=== PATIENT | female | born 1965 | race Hispanic/Latino ===

== ENCOUNTER 2025-03-19 16:49 | Inpatient (IN) | payer SELFPAY ==
[~2025-03-19] VITALS: Ht 157.5 cm; Wt 64.1 kg
[2025-03-19] MEDS ORDERED: LISI10TA24 PO (17:24)
[2025-03-19] MEDS ORDERED: METF-910 PO (17:24)
[2025-03-19] MEDS ORDERED: ATOR10 PO (17:24)
[2025-03-19 17:41] LABS: APPEARANCE,URINE CLEAR (CLEAR); GLUCOSE, URINE (UA) NEGATIVE (NEGATIVE); LEUKOCYTE ESTERASE ,URINE NEGATIVE Leu/uL (NEGATIVE); NITRATE,URINE NEGATIVE (NEGATIVE); OCCULT BLOOD,URINE NEGATIVE (NEGATIVE)
[2025-03-19 17:43] LABS: ADD UA MICROSCOPIC NO
--- NOTE | 2025-03-19 17:44 | EKG ---
[facility] Test Date: 2025-03-19 Test Time: 17:39:56 Pat Name: GRACE FIGUEROA Department: ED Room: 311 Gender: F [employer] Inspector: [id number] : 1965 Requested By: BROOKE CASTRO Order Number: [id number] Reading MD: Austyn Donnelly Measurements Intervals [place] Rate: 114 P: 47 [place]: 190 QRS: 24 QRSD: 85 T: -5 QT: 333 QTc: 460 Interpretive Statements Sinus tachycardia Low voltage, precordial leads No previous ECG available for comparison Electronically Signed On 03-20-2025 19:49:52 CDT by Austyn Donnelly Please click the below link to view image of tracing.
[2025-03-19] MEDS: [UNRECOGNIZED DRUG - OTHER] IV ONE (17:49)
[2025-03-19 17:50] LABS: SARS-CoV-2, RNA, NAAT NEGATIVE SARS CoV-2 (NEGATIVE)
[2025-03-19 17:53] LABS: IMMATURE GRANULOCYTE ABSOLUTE 0.07 K/uL (0-1); NUCLEATED RED BLOOD CELLS 0.0 % (0.0-0.19); PLATELET COUNT (AUTO) 268 K/uL (130-400); RED BLOOD CELL COUNT(AUTO) 4.43 MIL/uL (4.00-5.50); RED CELL DISTRIBUTION WIDTH 13.0 % (11.0-15.5); WHITE BLOOD COUNT (AUTO) 14.3 K/uL (4.8-10.8)
[2025-03-19 17:53] LABS: INFLUENZA TYPE A Negative For Type A (NEGATIVE); INFLUENZA TYPE B Negative For Type B (NEGATIVE)
[2025-03-19 18:13] LABS: CREATININE 0.7 mg/dL (0.5-1.0); GLOMERULAR FILTR. RATE CALC 100.0 mL/min (>90); GLUCOSE,RANDOM 169.0 mg/dL (70-105); SODIUM SERUM 140.0 mmol/L (136-145); UREA NITROGEN, BLOOD 13.0 mg/dL (7-18)
[2025-03-19 18:25] LABS: CREATINE KINASE, TOTAL 57.0 U/L (21-232)
--- NOTE | 2025-03-19 18:38 | HMCIMG ---
EXAM: CR Chest, 1 View. CLINICAL HISTORY: sob COMPARISON: None provided. FINDINGS: LUNGS: There is no mass, infiltrate, or acute pulmonary abnormality. PLEURAL SPACES: No evidence of pleural effusion or pneumothorax. MEDIASTINUM: Cardiac size and mediastinal contours within normal limits. BONES: No acute osseous abnormality. IMPRESSION: No acute cardiopulmonary pathology is evident. /[place]
[2025-03-19] MEDS: ZOSYN 3.375GM +NS 50ML IV ONE (18:51)
[2025-03-19] MEDS ORDERED: IOHEXOL 350 MG/ML 100ML INFUS..BTL IV ONE (18:56)
[2025-03-19] MEDS: MAGNESIUM OXIDE 400 MG TABLET ONE (18:57)
[2025-03-19] MEDS: MAGNESIUM OXIDE 400 MG TABLET PO STA (18:59)
--- NOTE | 2025-03-19 19:00 | NUR ---
PT IS REFUSING CT SCAN. ALETHEA CASTRO WAS ADVISED, HE SPOKE TO PT AT LENGTH BUT PT CONTINUES TO REFUSE.
--- NOTE | 2025-03-19 19:27 | ERN ---
General Chief Complaint: Fever Stated Complaint: FEVER Time Seen by MD: 17:13 Time Seen by Midlevel: 17:13 Source: patient History of Present Illness Initial Comments Patient is a 51-year-old female with a past medical history of type 2 diabetes and hypertension presenting to the emergency department via EMS for evaluation of fever, diarrhea, chills, nausea, vomiting, generalized body weakness that started earlier today. Allergies: Coded Allergies: No Known Allergies (Unverified Allergy, Unknown, 03/19/25) Home Meds Reported Medications Metformin HCl (Metformin HCl ER) 500 Mg Tab.er.24h, 1 TAB PO BID for 30 Days, #60 TAB 0 Refills 03/19/25 Lisinopril (Lisinopril) 10 Mg Tablet, 1 TAB PO DAILY for 30 Days, #30 TAB 0 Refills 03/19/25 Atorvastatin Calcium (LIPITOR) 20 Mg Tab, 1 TAB PO HS for 30 Days, #30 TAB 0 Refills 03/19/25 Past Medical History Past Medical History: Diabetes-Type II, Hypertension Past Surgical History: Other ROS Dictation CONSTITUTIONAL: Negative except for HPI HEAD/FACE: Negative except for HPI EENT: Negative except for HPI RESPIRATORY: Negative except for HPI GASTROINTESTINAL/ABDOMINAL: Negative except for HPI GENITOURINARY: Negative except for HPI MUSCULOSKELETAL: Negative except for HPI INTEGUMENTARY: Negative except for HPI NEUROLOGICAL/PSYCH: Negative except for HPI HEMATOLOGIC/LYMPHATIC: Negative except for HPI All Systems Negative, Except as noted above. 13 point review of systems assessed and all negative except for above. Physical Exam Physical Exam Dictation Vital Signs reviewed General Appearance: Alert, oriented x 3, no acute distress, well developed, nourished. Head and Face: non-traumatic. Eyes: PERRL, pink conjunctivas, eyelid no trauma, anterior chamber with arcus senilis. Ears: Pinnas intact and no signs of trauma or erythema ear canals clear and no discharge TM no erythema Nose: No discharge, no bleeding. Oropharynx: Mouth normal, tongue pink, pharynx clear,no erythema, tonsils no exudates, no abscesses noted, mucous membrane moist Neck: Supple, non-tender, no thyromegaly, no masses, no JVD, no bruits Breast:Deferred Chest:No tenderness, no crepitus, no paradoxical movement, no retractions Lungs:Clear, well-ventilated, symmetric, no rales, no wheezing, no rhonchi, no stridor, good breath sounds bilaterally Heart: Regular rate, regular rhythm, no murmur, no gallops Vascular: no peripheral edema, Abdomen: Soft, positive bowel sounds, nondistended, no guarding, nontender, no rebound, no masses no hepatomegaly, no splenomegaly, no Bullard's sign, no hernias. Rectal: Deferred Genital: Deferred Neurological: Normal speech, motor function intact, sensory function intact Musculoskeletal: Neck nontender, full range of motion, back nontender, full range of motion, Extremities: nontender, full range of motion Skin: Color pink, dry, no turgor, no rash, no lacerations, no abrasions, no contusions. Lymphatic: Deferred Results Laboratory and Microbiology Lab and Micro Result Labs Reviewed?: Yes MDM MDM: Differential diagnosis: Sepsis, gastroenteritis, dehydration, electrolyte abnormality Rationale: Tests considered and ordered secondary to shared decision making include: Previous outside records reviewed: Old ER visits. Risk of complication and/or morbidity or mortality of patient management: None Medications-Per medication reconciliation Need for hospitalization: Patient does meet criteria for hospitalization. Need for emergency major/minor surgery: No There are no social concerns with this patient. Prescription drug management Prescriptions will include symptomatic care Patient's prior external medical records from other ER visits were reviewed by me as indicated. Prior testing and results from previous visits were reviewed. Prior tests were taken into account with medical decision making and resource utilization, independent historian/historians were used to obtain complete medical history. I independently interpreted the test that were performed, results were reviewed by me and considered findings on radiology if ordered. Medical management and examination interpretation discussions were had by me with other qualified healthcare professionals as indicated for the patient's care. ED Course DX & DISP Disposition: Inpatient Departure Impression: Primary Impression: Sepsis Additional Impressions: Gastroenteritis, Leukocytosis Condition: Stable Referrals: SELF,REFERRAL (PCP) I have reviewed the case, and I agree with, Diagnosis and Plan I performed the substantive portion of the visit. I have reviewed and personally made and approve the management plan that is documented in the note by myself or the ANNABELLE. I acknowledge for responsibility for the patient's management plan. BROOKE CASTRO Mar 19, 2025 19:27
--- NOTE | 2025-03-19 20:49 | HP ---
[facility] HISTORY AND PHYSICAL Date of Service: Mar 19, 2025 Time of Service: 20:49 Attending/ Supervising physicians: Dr. Pablo and Dr. Teofilo Hollis HISTORY OF PRESENT ILLNESS: Mrs. Boudreaux is a 59-year-old female with a past medical history of hypercholesteremia, type 2 diabetes and hypertension who presented to [facility] via EMS for evaluation of fever, diarrhea, chills, nausea, vomiting, generalized body weakness that started earlier today. The patient reported that the abdominal pain was in her lower abdomen is constant and feels like colicky/bad cramping. Initially the patient refused CT of abdomen and pelvis that ED provider requested. The patient presented to the ED with with a BP of 124/81, heart rate 124 bpm, respirations 20 bpm, 100.29 F, 98% on room air. Labs: WBCs of 14.3, lactic acids 2.5, magnesium 1.4. Negative: Influenza, COVID, rapid strep swabs, UA, and chest x-ray. ED provider administered NS a 1878 mL, Tylenol 1 g, Zosyn 3.375, magnesium oxide 400 mg. ED provider request patient be admitted to the hospital with a diagnosis of sepsis, gastroenteritis, leukocytosis. I assessed the patient in ED 19. Significant other was at bedside I informed them of vital signs and labs. The patient was then in agreement with the CT. CT abdomen and pelvis with contrast results: Acute diverticulitis around the distal descending and proximal sigmoid colon without perforation or abscess. Fatty liver. I answered their multiple questions. They verbalized understanding and are in agreement with the remaining of the plan. Plan and assessment are listed below. REVIEW OF SYSTEMS 12-point ROS reviewed with the patient. All pertinent positives mentioned a aram. 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 FAMILY HISTORY: Noncontributory Coded Allergies: No Known Allergies (Unverified Allergy, Unknown, 03/19/25) PHYSICAL EXAM GENERAL APPEARANCE: The patient is awake, alert, and oriented, in no acute card iopulmonary distress. NEUROLOGICAL: Cranial nerves II-XII grossly intact. Motor is 5/5 in bilateral upper and lower extremities proximal to distal. No sensory deficits. HEENT: Face is symmetric. Pupils are equal and reactive. Extraocular movements are intact. NECK: Supple. No JVD. No thyromegaly. No submental, submandibular, pre- /postauricular, occipital or supraclavicular lymphadenopathy. CHEST: Normal chest expansion. No Telemetry. LUNGS: Absence of any rales, rhonchi or any wheezing. CARDIOVASCULAR: Regular. S1 and S2 normal. No appreciable rubs, murmurs or gallops. ABDOMEN: Soft, lower abdominal tenderness, and nondistended. There is no rebound, voluntary guarding, or rigidity. : Deferred. No Queen. EXTREMITIES: Non-edematous and not cyanotic. No clubbing. Good capillary refill. SKIN: No skin breakdown. Vital Sign (Last 24 Hours) 03/19/25 19:23 Temp 100.8 Pulse 106 Resp 20 B/P (MAP) 107/59 Pulse Ox 97 O2 Delivery Room Air* O2 Flow Rate 0 FiO2 21 LABS: Laboratory: Test 03/19/25 17:33 03/19/25 17:25 Range/Units White Blood Count 14.3 H 4.8-10.8 K/uL Red Blood Count 4.43 4.00-5.50 MIL/uL Hemoglobin 13.3 12.0-16.0 g/dL Hematocrit 38.9 36-48 % Mean Corpuscular Volume 87.8 79-99 fL Mean Corpuscular Hemoglobin 30.0 27.0-33.0 pg Mean Corpuscular Hemoglobin Concent 34.2 32.0-36.0 g/dL Red Cell Distribution Width 13.0 11.0-15.5 % Platelet Count 268 130-400 K/uL Mean Platelet Volume 9.4 7.5-10.5 fL Immature Granulocyte % (Auto) 0.5 0-1 % Neutrophils (%) (Auto) 95.1 H 40.0-77.0 % Lymphocytes (%) (Auto) 2.9 L 21.0-51.0 % Monocytes (%) (Auto) 1.2 L 3.0-13.0 % Eosinophils (%) (Auto) 0.1 0.0-8.0 % Basophils (%) (Auto) 0.2 0.0-5.0 % Neutrophils # (Auto) 13.6 H 1.8-7.7 K/uL Lymphocytes # (Auto) 0.4 L 1.0-4.8 K/uL Monocytes # (Auto) 0.2 0.1-1.0 K/uL Eosinophils # (Auto) 0.01 0.00-0.70 K/uL Basophils # (Auto) 0.03 0.00-0.20 K/uL Absolute Immature Granulocyte (auto 0.07 0-1 K/uL Nucleated Red Blood Cells 0.0 0.0-0.19 % White Cell Morphology Comment See comments Urine Color COLORLESS YELLOW Urine Appearance CLEAR CLEAR Urine pH 5.0 5.0-8.0 Urine Specific [place] 1.007 1.001-1.031 Urine Protein NEGATIVE NEGATIVE mg/dL Urine Glucose (UA) NEGATIVE NEGATIVE mg/dL Urine Ketones NEGATIVE NEGATIVE mg/dL Urine Occult Blood NEGATIVE NEGATIVE Urine Nitrate NEGATIVE NEGATIVE Urine Bilirubin NEGATIVE NEGATIVE mg/dL Urine Urobilinogen 0.2 0.2-1.0 mg/dL Urine Leukocyte Esterase NEGATIVE NEGATIVE Sim/uL Sodium Level 140 136-145 mmol/L Potassium Level 3.7 3.5-5.1 mmol/L Chloride Level 105 101-111 mmol/L Carbon Dioxide Level 26 21-32 mmol/L Blood Urea Nitrogen 13 7-18 mg/dL Creatinine 0.7 0.5-1.0 mg/dL Glomerular Filtration Rate Calc 100 >90 mL/min Random Glucose 169 H 70-105 mg/dL Lactic Acid Level 2.5 0.8-2.5 mmol/L Total Calcium 8.3 L 8.5-10.1 mg/dL Magnesium Level 1.40 L 1.80-2.40 mg/dL Total Creatine Kinase 57 21-232 U/L Troponin I High Sensitivity < 4 L 4-50 ng/L B-Type Natriuretic Peptide 26 0-100 pg/mL Influenza Type A Antigen Negative For Type A NEGATIVE Influenza Type B Antigen Negative For Type B NEGATIVE SARS-CoV-2, RNA, NAAT NEGATIVE SARS CoV-2 NEGATIVE Current Medications Medications (Trade) Dose Ordered Sig/Sancho Route PRN Reason Start Time Stop Time Status Last Admin Dose Admin Magnesium Oxide (Mag-Ox) 400 mg ONCE STAT PO 03/19/25 18:51 03/19/25 18:58 DC DIAGNOSTICS / RADIOLOGY: [ ] ASSESSMENT: Acute diverticulitis around the distal descending and proximal sigmoid colon, POA, per CT on 03/19/2025 Sepsis, POA, 2/2 above Intractable abdominal pain with acute N/V/D, POA Acute febrile illness, POA Fatty liver, POA Leukocytosis/lactic acidosis, POA GBW, POA Diabetes mellitus with hyperglycemia, POA Electrolyte derangement (hypomagnesemia, hypocalcemia), POA Hypertension Hypercholesteremia PLAN: -Admit to medical floor with continuous telemetry monitoring. -Continue Zosyn 3.375 Q.8 hours. -LR x1 L bolus then LR at 125 mL/hour. -NPO for now. -Reconciled/started home medications: Atorvastatin and lisinopril. -Hold home medication metformin and start insulin sliding scale per protocol -Monitor electrolytes and treat accordingly. -Monitor renal and liver function. -PRN medications for pain management, fever, N/V, constipation, hypertension. -Oxygen supplement as needed to maintain oxygen levels equal to or greater than 92% -I&O. -Blood pressure checks every 4 hours and as needed. -AM labs. -GI and DVT prophylaxis -Further plan/orders per hospitalization course. 1. Which of the following were discussed? Hospice Care - No Therapeutic options - Yes Advance Directives - Yes Other discussions - 2. Discussed with who? The patient 3. Voluntary nature of this service was explained to the patient? Yes 4. Amount of time spent - _ Over 35 minute 5. Reviewed by Physician? (if this service was performed by ANNABELLE) Yes ATTESTATION BY PHYSICIAN I have seen and examined the patient. I reviewed the documentation, medical decision making, and treatment plan as noted by the ANNABELLE above. I agree with the findings and plan of care. LU CHAUDHRY WEAVER DOBBY LOOM Mar 19, 2025 20:49
[2025-03-19] MEDS: LACTATED RINGERS 1000ML IV ONE (21:22)
[2025-03-19] MEDS ORDERED: HYDROcodone/APAP 5/325 1 TAB TABLET PO PRN (22:00)
[2025-03-19] MEDS ORDERED: GLUCAGON 1MG KIT 1 MG ML IM PRN (22:30)
[2025-03-19] MEDS ORDERED: IOHEXOL-350 75 ML VIAL IV ONE (22:30)
[2025-03-19] MEDS ORDERED: MAGNESIUM 2GM PREMIX 50ML 50 ML IV ONE (22:30)
[2025-03-19] MEDS ORDERED: DEXTROSE 50%-WATER 50 ML DISP.SYRIN IV PRN (22:30)
[2025-03-19] MEDS ORDERED: PoTASSium chl 10% ELIXIR 20MEQ 20 MEQ/15 ML UDCUP PO PRN (22:30)
[2025-03-19] MEDS: LACTATED RINGERS 1000ML 1,000 ML IV SCH (23:03)
[2025-03-19] MEDS: PoTASSium chloRIDE 20MEQ ER 20 MEQ ERTAB PO PRN (23:49)
[2025-03-19] MEDS: MAGNESIUM 2GM PREMIX 50ML 50 ML IV PRN (23:49)
[2025-03-20] VITALS (9 sets, daily range): BP systolic 95–125; BP diastolic 56–72; PULSE 77–88; RESP 18–20; TEMP 98.2–103.6; O2SAT 97
--- NOTE | 2025-03-20 00:26 | HMCIMG ---
EXAM: CT Abdomen and Pelvis with IV contrast. CLINICAL HISTORY: Severe lower abdominal pain. TECHNIQUE: Thin collimated axial CT images of the abdomen and pelvis were obtained, with sagittal and coronal reformatted images also submitted. A CT scan is done according to ALARA (As Low As Reasonably Achievable). CONTRAST: 75 cc Omnipaque 350. COMPARISON: None. FINDINGS: Unremarkable visualised lung parenchyma. There is no focal abnormality appreciated within the liver, gallbladder, pancreas, spleen, adrenals, or kidneys. Fatty liver. Bowel loops are normal in calibre without evidence of obstruction or ileus. Sigmoid and descending colonic diverticulosis with adjacent fatty stranding. The appendix is unremarkable. There is no abnormality within the urinary bladder. Unremarkable reproductive organs. No lymphadenopathy. No free fluid. No pneumoperitoneum. No gross abnormality in the abdominal vessels. There is no acute osseous abnormality. IMPRESSIONS: Acute diverticulitis around the distal descending and proximal sigmoid colon without perforation or abscess. Fatty liver. /Julieth
--- NOTE | 2025-03-20 00:50 | NUR ---
REPORT GIVEN TO NURSE CATHERINE
[2025-03-20] MEDS: ZOSYN 3.375GM +NS 50ML IVPB SCH (02:38)
[2025-03-20] MEDS ORDERED: 0.9%NACL 50ML IV SCH (03:00)
[2025-03-20 06:24] LABS: NUCLEATED RED BLOOD CELLS 0.0 % (0.0-0.19); PLATELET COUNT (AUTO) 234.0 K/uL (130-400); RED BLOOD CELL COUNT(AUTO) 3.98 MIL/uL (4.00-5.50); RED CELL DISTRIBUTION WIDTH 13.0 % (11.0-15.5); WHITE BLOOD COUNT (AUTO) 13.5 K/uL (4.8-10.8)
[2025-03-20 06:55] LABS: CREATININE 0.7 mg/dL (0.5-1.0); GLOMERULAR FILTR. RATE CALC 100.0 mL/min (>90); GLUCOSE,RANDOM 170.0 mg/dL (70-105); PHOSPHORUS 1.7 mg/dL (2.5-4.9); SODIUM SERUM 137.0 mmol/L (136-145); UREA NITROGEN, BLOOD 5.0 mg/dL (7-18)
[2025-03-20] MEDS: LISINOPRIL 10 MG TABLET PO SCH (09:00)
--- NOTE | 2025-03-20 09:20 | NUR ---
bp med held lisinopril held per pt request d/t low blood pressure this morning at 7am showing 95/56 hr 77. will continue monitoring.
[2025-03-20] MEDS: FAMOTIDINE 20MG VIAL IV SCH (09:39)
--- NOTE | 2025-03-20 10:44 | NUR ---
positive blood cx notified by operations label clerk Valencia of positive blood cultures gram - rods /. dr romo aware and stated to continue iv zosyn and to consult ID. Dr Garcia notified at 1145, pending confirmation. will followup.
--- NOTE | 2025-03-20 12:36 | NUR ---
general surgery consult dr coles notified of new consult for diverticulitis per dr romo, pending confirmation will followup.
--- NOTE | 2025-03-20 12:50 | NUR ---
fever dr romo made aware of pt temp 103.6 oral. icepacks applied, tylenol given, and id consulted per dr romo orders. temp also retaken at 1400, recheck temp shows 98.6 oral. will continue monitoring.
--- NOTE | 2025-03-20 13:59 | PN ---
[facility] PROGRESS NOTE Date of Service: Mar 20, 2025 Time of Service: 13:57 SUBJECTIVE: 03/20 the patient has been seen and examined at bedside, case discussed with the RN, patient remains hemodynamically stable, blood pressure 115/70, patient is still spiking fever, maximum temperature today 103.6. She complains of mild abdominal discomfort, still with persistent leukocytosis, WBC today 13.5. Chest x-ray no acute cardiopulmonary pathology. CT of the abdomen showing acute diverticulitis around the distal descending and proximal sigmoid colon without perforation or abscess. We will keep the patient NPO, supportive care with IV fluids, pain medication, broad-spectrum IV antibiotics. Infectious Disease consultation requested, we will follow input and recommendation. Surgical consultation requested, we will follow input and recommendation. REVIEW OF SYSTEMS 12-point ROS reviewed with the patient. All pertinent positives mentioned above. Otherwise negative, noncontributory, non-pertinent PHYSICAL EXAM GENERAL APPEARANCE: The patient is awake, alert, and oriented, in no acute cardiopulmonary distress. NEUROLOGICAL: Cranial nerves II-XII grossly intact. Motor is 5/5 in bilateral upper and lower extremities proximal to distal. No sensory deficits. HEENT: Face is symmetric. Pupils are equal and reactive. Extraocular movements are intact. NECK: Supple. No JVD. No thyromegaly. No submental, submandibular, pre- /postauricular, occipital or supraclavicular lymphadenopathy. CHEST: Normal chest expansion. No Telemetry. LUNGS: Absence of any rales, rhonchi or any wheezing. CARDIOVASCULAR: Regular. S1 and S2 normal. No appreciable rubs, murmurs or gallops. ABDOMEN: Tenderness To deep palpation left lower quadrant. : Deferred. No Queen. EXTREMITIES: Non-edematous and not cyanotic. No clubbing. Good capillary refill. SKIN: No skin breakdown. Vital Signs (last 8hr) Date Time Temp Pulse Resp B/P (MAP) Pulse Ox O2 Delivery O2 Flow Rate FiO2 03/20/25 12:44 103.6 03/20/25 11:36 98.4 88 18 115/70 100 Room Air 03/20/25 07:44 98.8 77 19 95/56 97 Room Air LABS: Laboratory: Test 03/20/25 10:41 03/20/25 06:15 03/19/25 22:11 03/19/25 21:34 Range/Units Whole Blood Glucose 124 H 70-110 MG/DL White Blood Count 13.5 H 4.8-10.8 K/uL Red Blood Count 3.98 L 4.00-5.50 MIL/uL Hemoglobin 12.1 12.0-16.0 g/dL Hematocrit 33.8 L 36-48 % Mean Corpuscular Volume 84.9 79-99 fL Mean Corpuscular Hemoglobin 30.4 27.0-33.0 pg Mean Corpuscular Hemoglobin Concent 35.8 32.0-36.0 g/dL Red Cell Distribution Width 13.0 11.0-15.5 % Platelet Count 234 130-400 K/uL Mean Platelet Volume 9.3 7.5-10.5 fL Nucleated Red Blood Cells 0.0 0.0-0.19 % Sodium Level 137 136-145 mmol/L Potassium Level 3.9 3.5-5.1 mmol/L Chloride Level 107 101-111 mmol/L Carbon Dioxide Level 23 21-32 mmol/L Blood Urea Nitrogen 5 L 7-18 mg/dL Creatinine 0.7 0.5-1.0 mg/dL Glomerular Filtration Rate Calc 100 >90 mL/min Random Glucose 170 H 70-105 mg/dL Total Calcium 8.2 L 8.5-10.1 mg/dL Phosphorus Level 1.7 L 2.5-4.9 mg/dL Magnesium Level 1.80 1.80-2.40 mg/dL Thyroid Stimulating Hormone (TSH) 1.32 0.36-3.74 uIU/mL Group A Streptococcus Rapid negative NEGATIVE Lactic Acid Level 2.0 0.8-2.5 mmol/L Test 03/19/25 17:33 03/19/25 17:25 Range/Units Immature Granulocyte % (Auto) 0.5 0-1 % Neutrophils (%) (Auto) 95.1 H 40.0-77.0 % Lymphocytes (%) (Auto) 2.9 L 21.0-51.0 % Monocytes (%) (Auto) 1.2 L 3.0-13.0 % Eosinophils (%) (Auto) 0.1 0.0-8.0 % Basophils (%) (Auto) 0.2 0.0-5.0 % Neutrophils # (Auto) 13.6 H 1.8-7.7 K/uL Lymphocytes # (Auto) 0.4 L 1.0-4.8 K/uL Monocytes # (Auto) 0.2 0.1-1.0 K/uL Eosinophils # (Auto) 0.01 0.00-0.70 K/uL Basophils # (Auto) 0.03 0.00-0.20 K/uL Absolute Immature Granulocyte (auto 0.07 0-1 K/uL White Cell Morphology Comment See comments Urine Color COLORLESS YELLOW Urine Appearance CLEAR CLEAR Urine pH 5.0 5.0-8.0 Urine Specific [place] 1.007 1.001-1.031 Urine Protein NEGATIVE NEGATIVE mg/dL Urine Glucose (UA) NEGATIVE NEGATIVE mg/dL Urine Ketones NEGATIVE NEGATIVE mg/dL Urine Occult Blood NEGATIVE NEGATIVE Urine Nitrate NEGATIVE NEGATIVE Urine Bilirubin NEGATIVE NEGATIVE mg/dL Urine Urobilinogen 0.2 0.2-1.0 mg/dL Urine Leukocyte Esterase NEGATIVE NEGATIVE Sim/uL Total Creatine Kinase 57 21-232 U/L Troponin I High Sensitivity < 4 L 4-50 ng/L B-Type Natriuretic Peptide 26 0-100 pg/mL Influenza Type A Antigen Negative For Type A NEGATIVE Influenza Type B Antigen Negative For Type B NEGATIVE SARS-CoV-2, RNA, NAAT NEGATIVE SARS CoV-2 NEGATIVE Current Medications Medications (Trade) Dose Ordered Sig/Sancho Route PRN Reason Start Time Stop Time Status Last Admin Dose Admin Acetaminophen (TYLenol 325MG TAB) 650 mg Q6H PRN PO FEVER/MILD PAIN LEVEL 1-3 03/19/25 22:00 04/18/25 21:59 03/20/25 12:44 650 MG Acetaminophen (TYLenol 650MG SUPPOSITORY) 650 mg Q6H PRN RC FEVER / MILD PAIN 1-3 IF NPO 03/19/25 22:00 04/18/25 21:59 Acetaminophen/ Hydrocodone Bitart (NORco 5/325MG) FOR MODERATE PAIN SC... Q6H PRN PO PAIN 4-10 03/19/25 22:00 03/24/25 21:59 Atorvastatin Calcium (LIPItor 10MG) 10 mg HS PO 03/20/25 21:00 04/19/25 20:59 Dextrose (D50w) 50 ml AD PRN IV HYPOGLYCEMIA PROTOCOL 03/19/25 22:30 04/18/25 22:29 Docusate Sodium (COLace 100MG CAP) 100 mg BID PRN PO CONSTIPATION 03/19/25 22:00 04/18/25 21:59 Famotidine (Pepcid 20mg Vial) 20 mg BID IV 03/20/25 09:00 04/19/25 08:59 03/20/25 09:39 20 MG Glucagon (Glucagon 1mg Kit) 1 mg AD PRN IM HYPOGLYCEMIA PROTOCOL 03/19/25 22:30 04/18/25 22:29 Insulin Human Regular (humuLIN R 100 UNIT/ML 3ML) INSULIN SLIDING SCAL... ACHS SQ 03/20/25 07:30 04/19/25 07:29 Lactated Ringer's 1,000 ml @ 125 mls/hr Q8H IV 03/19/25 21:30 04/18/25 21:29 03/20/25 12:05 125 MLS/HR Lactulose (Constulose 20gm/ 30ml Udcup) 20 gm Q6H PRN PO CONSTIPATION 03/19/25 22:00 04/18/25 21:59 Lisinopril (Prinivil 10mg) 10 mg DAILY PO 03/20/25 09:00 04/19/25 08:59 Magnesium Oxide (Mag-Ox) 400 mg ONCE STAT PO 03/19/25 18:51 03/19/25 18:58 DC Magnesium Sulfate 50 ml @ 0 mls/hr PROTOCOL PRN IV MAGNESIUM PROTOCOL 03/19/25 22:30 04/18/25 22:29 03/20/25 07:07 0 MLS/HR Ondansetron HCl (zoFRAN 4MG INJ) 4 mg Q6H PRN IVP NAUSEA/VOMITING 03/19/25 22:00 04/18/25 21:59 Piperacillin Sod/ Tazobactam Sod (Zosyn 3.375gm+NS 50ml) 3.375 gm Q8H IVPB 03/20/25 03:00 03/30/25 02:59 03/20/25 09:40 3.375 GM Potassium Chloride 100 ml @ 100 mls/hr AD PRN IV POTASSIUM PROTOCOL 03/19/25 22:30 04/18/25 22:29 Potassium Chloride (K-Dur/Klor-Con 20meq) 20 meq AD PRN PO POTASSIUM PROTOCOL 03/19/25 22:30 04/18/25 22:29 03/20/25 02:38 20 MEQ Potassium Chloride (KCl 10% Elixir 20meq/15ml) 20 meq AD PRN PO POTASSIUM PROTOCOL 03/19/25 22:30 04/18/25 22:29 Sodium Chloride (NS 50ml) 50 ml AD IV 03/20/25 03:00 04/19/25 02:59 Temazepam (restORIL 15 MG CAP) 15 mg HS PRN PO INSOMNIA/SLEEP 03/19/25 22:00 04/18/25 21:59 DIAGNOSTICS / RADIOLOGY: [ ] ASSESSMENT: Acute diverticulitis around the distal descending and proximal sigmoid colon, POA, per CT on 03/19/2025 Sepsis, POA, 2/2 above Intractable abdominal pain with acute N/V/D, POA Acute febrile illness, POA Fatty liver, POA Leukocytosis/lactic acidosis, POA GBW, POA Diabetes mellitus with hyperglycemia, POA Electrolyte derangement (hypomagnesemia, hypocalcemia), POA Hypertension Hypercholesteremia PLAN: the patient has been seen and examined at bedside, case discussed with the RN, patient remains hemodynamically stable, blood pressure 115/70, patient is still spiking fever, maximum temperature today 103.6. She complains of mild abdominal discomfort, still with persistent leukocytosis, WBC today 13.5. Chest x-ray no acute cardiopulmonary pathology. CT of the abdomen showing acute diverticulitis around the distal descending and proximal sigmoid colon without perforation or abscess. We will keep the patient NPO, supportive care with IV fluids, pain medication, broad-spectrum IV antibiotics. Infectious Disease consultation requested, we will follow input and recommendation. Surgical consultation requested, we will follow input and recommendation. NEURO: Minimize central acting medications as possible. Fall Precautions. Well lighted room through the day and minimize interruptions through the night to prevent acute delirium. PULMONARY: Supplemental 02 as needed BiPAP as necessary, for respiratory distress Titrate Fio2 to keep Spo2 > or = 90% DuoNebs and CPT as needed IS hourly while awake for pulmonary hygiene prn Out of bed to chair as tolerated Maintain aspiration precautions at all times CARDIOVASCULAR: Follow hemodynamics. Vital signs per facility protocol GI & NUTRITION: Continue nutritional support Aspirations precautions Prokinetic agents and laxatives as needed KIDNEYS & ELECTROLYTES: Strict monitoring of intake and output Daily weights Avoid nephrotoxic agents Monitor electrolytes and replace as needed Goal urine output of 30mL/hr or 0.5mL/kg/hr Medications to be dosed according to renal function. Avoid contrast if possible ENDOCRINE: Maintain blood glucose between 100-180 at all times. Insulin sliding scale for blood glucose management Hypoglycemia and hyperglycemia protocol in place INFECTIOUS DISEASE: Trend temperature, WBC and procalcitonin level Follow cultures, deescalate antibiotics as soon as possible. Panculture if new onset fever HEMATOLOGY & COAGULATION: Monitor H&H. Keep Hgb > 7 Transfuse 1 unit of PRBC for Hgb < 7 Transfuse 1 pack of platelets of platelets < 20, 000 Watch for any signs and symptoms of bleeding SKIN: Pressure ulcer prevention per facility protocol Specialty mattress as needed ORTHO/REHAB Continue PT/OT PRN: MEDICATIONS Tylenol 650 mg po every 4 hrs for fever zofran 4 mg IV every 6 hrs for n/v Hydralazine 5 mg IV every 4 hrs systolic pressure > 160 bowel regiment: lactulose 20 gm PO BID PRN constipation Supportive measures: Continue GI and DVT prophylaxis Disposition: Pending improvement in clinical condition All questions answered time spent: > 35 min SHANE MAURER MD Mar 20, 2025 13:59
--- NOTE | 2025-03-20 14:00 | NUR ---
dr irasema villalpando with general surgery made rounds, talked with pt, and stated to continue iv abx, pain medication and to monitor for the next day or 2. per dr villalpando, if pt does not get better, then pt possibly will need surgery. pt verbalized understanding.
--- NOTE | 2025-03-20 14:10 | CONS ---
GENERAL SURGERY CONSULTATION NOTE DATE OF CONSULTATION: Mar 20, 2025 TIME OF CONSULTATION: 14:08 CONSULTING SERVICE: Niki Mathews MD REQUESTING PHYSICAIN: [ ] REASON FOR CONSULTATION: [ ] Acute diverticulitis HISTORY OF PRESENT ILLNESS: [ ] 59-year-old lady who presented with abdominal pain Pain started two days ago associated with nausea but no vomiting She also has fever She has been having diarrhea No blood in his stools PAST MEDICAL HISTORY: [ ] None PAST SURGICAL HISTORY: [ ] FAMILY HISTORY: [ ] Positive for lung cancer in the father SOCIAL HISTORY: [ ] No smoking No alcohol Current Medications Medications (Trade) Dose Ordered Sig/Sancho Route Start Time Stop Time Status Last Admin Dose Admin Atorvastatin Calcium (LIPItor 10MG) 10 mg HS PO 03/20/25 21:00 04/19/25 20:59 Famotidine (Pepcid 20mg Vial) 20 mg BID IV 03/20/25 09:00 04/19/25 08:59 03/20/25 09:39 20 MG Insulin Human Regular (humuLIN R 100 UNIT/ML 3ML) INSULIN SLIDING SCAL... 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 PHYSICAL EXAMINATION: GENERAL: [Patient is lying comfortably in bed, not in any obvious distress.] HEAD: [Normal with no signs of head trauma.] EYES: [Not pale not jaundiced afebrile to touch.] ENT: [ Normal.] NECK: [Supple,no tenderness,no lymphadenopathy,no masses,no thyromegaly ,no bruits, no JVD.] LUNGS: [Clear breath sounds bilaterally. No wheezes, rales, or rhonchi.] HEART: [Regular rate and rhythm. Normal S1 and S2, without murmurs, rub or gallop.] VASC: [No edema. Peripheral pulses normal and equal in all extremities.] ABD: [Bowel sounds present,soft, left flank tenderness no masses, no organomegaly.] : [Normal, no suprapubic tenderness.] LYMPH: [No lymphadenopathy noted.] EXT: [ Warm soft, non tender.] SKIN: [ No rashes or lesions.] NEURO: [ Awake Alert and oriented x3.] Vital Signs (last 8hr) Date Time Temp Pulse Resp B/P (MAP) Pulse Ox O2 Delivery O2 Flow Rate FiO2 03/20/25 12:44 103.6 03/20/25 11:36 98.4 88 18 115/70 100 Room Air 03/20/25 07:44 98.8 77 19 95/56 97 Room Air LABORATORY: [ ] Hematology Labs: Test 03/20/25 06:15 03/19/25 17:33 Range/Units White Blood Count 13.5 H 4.8-10.8 K/uL Red Blood Count 3.98 L 4.00-5.50 MIL/uL Hemoglobin 12.1 12.0-16.0 g/dL Hematocrit 33.8 L 36-48 % Mean Corpuscular Volume 84.9 79-99 fL Mean Corpuscular Hemoglobin 30.4 27.0-33.0 pg Mean Corpuscular Hemoglobin Concent 35.8 32.0-36.0 g/dL Red Cell Distribution Width 13.0 11.0-15.5 % Platelet Count 234 130-400 K/uL Mean Platelet Volume 9.3 7.5-10.5 fL Nucleated Red Blood Cells 0.0 0.0-0.19 % Immature Granulocyte % (Auto) 0.5 0-1 % Neutrophils (%) (Auto) 95.1 H 40.0-77.0 % Lymphocytes (%) (Auto) 2.9 L 21.0-51.0 % Monocytes (%) (Auto) 1.2 L 3.0-13.0 % Eosinophils (%) (Auto) 0.1 0.0-8.0 % Basophils (%) (Auto) 0.2 0.0-5.0 % Neutrophils # (Auto) 13.6 H 1.8-7.7 K/uL Lymphocytes # (Auto) 0.4 L 1.0-4.8 K/uL Monocytes # (Auto) 0.2 0.1-1.0 K/uL Eosinophils # (Auto) 0.01 0.00-0.70 K/uL Basophils # (Auto) 0.03 0.00-0.20 K/uL Absolute Immature Granulocyte (auto 0.07 0-1 K/uL White Cell Morphology Comment See comments Chemistry Labs: Test 03/20/25 10:41 03/20/25 06:15 03/19/25 21:34 03/19/25 17:33 Range/Units Whole Blood Glucose 124 H 70-110 MG/DL Sodium Level 137 136-145 mmol/L Potassium Level 3.9 3.5-5.1 mmol/L Chloride Level 107 101-111 mmol/L Carbon Dioxide Level 23 21-32 mmol/L Blood Urea Nitrogen 5 L 7-18 mg/dL Creatinine 0.7 0.5-1.0 mg/dL Glomerular Filtration Rate Calc 100 >90 mL/min Random Glucose 170 H 70-105 mg/dL Total Calcium 8.2 L 8.5-10.1 mg/dL Phosphorus Level 1.7 L 2.5-4.9 mg/dL Magnesium Level 1.80 1.80-2.40 mg/dL Thyroid Stimulating Hormone (TSH) 1.32 0.36-3.74 uIU/mL Lactic Acid Level 2.0 0.8-2.5 mmol/L Total Creatine Kinase 57 21-232 U/L Troponin I High Sensitivity < 4 L 4-50 ng/L B-Type Natriuretic Peptide 26 0-100 pg/mL DIAGNOSTICS / RADIOLOGY: [Copy/Paste Echos/Imaging Report here] ASSESSMENT: [] Acute diverticulitis PLAN: [] NPO/IVF/IV ANTIOBIOTICS Labs in a.NIKI Cornejo MD Mar 20, 2025 14:10
--- NOTE | 2025-03-20 16:18 | NUR ---
Discharge Planing: Pt. states she lives with her spouse and son. Contact number is for her daughter Leila at . Pt. is employed at [employer] in [place]. See's Dr. Flowers there and uses clinic pharmacy. Pt. states she is independent with all ADL's. No home health, provider services, or DME. DCP is for home. No d/c needs for now.
--- NOTE | 2025-03-20 21:44 | PN ---
INFECTIOUS DISEASE FOLLOWUP NOTE DATE OF SERVICE: 03/20/2025 SUBJECTIVE: The patient is seen and examined at bedside. No fever, no chills. No nausea. No vomiting. No abdominal pain. No bleeding tendency. No rashes or itchiness. No palpitations. No orthopnea. The patient denies neck pain or neck swelling. PHYSICAL EXAMINATION: VITAL SIGNS: Temperature 103.2. EYES: No icterus. Pupils are equal and reactive. HENT: No oral thrush seen. Moist oral mucosa. NECK: Supple. No JVD or thyromegaly. LUNGS: Good air entry. No rales. No rhonchi. CARDIOVASCULAR: S1, S2 regular. No murmur heard. ABDOMEN: Full, soft. Mild tenderness in the left lower quadrant. CENTRAL NERVOUS SYSTEM: Awake, alert, oriented x 3. No focal deficits. SKIN: No rashes, no itchiness. LYMPHATIC: No peripheral lymphadenopathy. Blood culture is going Gram-negative ____. ASSESSMENT: A 59-year-old female presenting with fever and abdominal pain. Current problems include: * Gram-negative bacteremia and sepsis. * Active diverticulitis. * Abdominal pain. * Diabetes mellitus. PLAN: * Continue Zosyn. * Continue pain management. * Follow up culture. * Continue antiemetic. * Continue antidiabetic. * The patient will be followed up closely. TID: [id number] RECEIPT: [id number]
[2025-03-21] VITALS (7 sets, daily range): BP systolic 121–153; BP diastolic 50–99; PULSE 73–100; RESP 17–20; TEMP 98.1–99.9; O2SAT 95
[2025-03-21 05:25] LABS: NUCLEATED RED BLOOD CELLS 0.0 % (0.0-0.19); PLATELET COUNT (AUTO) 198.0 K/uL (130-400); RED BLOOD CELL COUNT(AUTO) 3.94 MIL/uL (4.00-5.50); RED CELL DISTRIBUTION WIDTH 13.2 % (11.0-15.5); WHITE BLOOD COUNT (AUTO) 8.4 K/uL (4.8-10.8)
[2025-03-21 05:52] LABS: ASPARTATE AMINOTRANSFERASE 45.0 U/L (10-37); CREATININE 0.9 mg/dL (0.5-1.0); GLOMERULAR FILTR. RATE CALC 74.0 mL/min (>90); GLUCOSE,RANDOM 126.0 mg/dL (70-105); SODIUM SERUM 139.0 mmol/L (136-145); TOTAL PROTEIN, SERUM 6.1 g/dL (6.0-8.3); UREA NITROGEN, BLOOD 6.0 mg/dL (7-18)
--- NOTE | 2025-03-21 12:11 | PN ---
[facility] PROGRESS NOTE Date of Service: Mar 21, 2025 Time of Service: 12:10 SUBJECTIVE: 03/20 the patient has been seen and examined at bedside, case discussed with the RN, patient remains hemodynamically stable, blood pressure 115/70, patient is still spiking fever, maximum temperature today 103.6. She complains of mild abdominal discomfort, still with persistent leukocytosis, WBC today 13.5. Chest x-ray no acute cardiopulmonary pathology. CT of the abdomen showing acute diverticulitis around the distal descending and proximal sigmoid colon without perforation or abscess. We will keep the patient NPO, supportive care with IV fluids, pain medication, broad-spectrum IV antibiotics. Infectious Disease consultation requested, we will follow input and recommendation. Surgical consultation requested, we will follow input and recommendation. 03/21 patient remains admitted to the medical floor, case discussed with the RN, no acute events overnight, she is hemodynamically stable, afebrile, saturating normal on room air, leukocytosis resolved, the time of my visit getting IV fluids, as well as IV antibiotics. The patient is currently NPO, with are clear liquid diet, advanced as tolerated, infectious disease input noted and appreciated, continue to follow surgical input and recommendation as well. Discussed with the patient, anticipate discharge home in the next 24-48 hours if medically stable. Patient in agreement. REVIEW OF SYSTEMS 12-point ROS reviewed with the patient. All pertinent positives mentioned above. Otherwise negative, noncontributory, non-pertinent PHYSICAL EXAM GENERAL APPEARANCE: The patient is awake, alert, and oriented, in no acute cardiopulmonary distress. NEUROLOGICAL: Cranial nerves II-XII grossly intact. Motor is 5/5 in bilateral upper and lower extremities proximal to distal. No sensory deficits. HEENT: Face is symmetric. Pupils are equal and reactive. Extraocular movements are intact. NECK: Supple. No JVD. No thyromegaly. No submental, submandibular, pre- /postauricular, occipital or supraclavicular lymphadenopathy. CHEST: Normal chest expansion. No Telemetry. LUNGS: Absence of any rales, rhonchi or any wheezing. CARDIOVASCULAR: Regular. S1 and S2 normal. No appreciable rubs, murmurs or gallops. ABDOMEN: Tenderness To deep palpation left lower quadrant. : Deferred. No [place]. EXTREMITIES: Non-edematous and not cyanotic. No clubbing. Good capillary refill. SKIN: No skin breakdown. Vital Signs (last 8hr) Date Time Temp Pulse Resp B/P (MAP) Pulse Ox O2 Delivery O2 Flow Rate FiO2 03/21/25 11:43 98.4 85 19 133/85 95 Room Air 03/21/25 07:49 98.2 81 19 125/76 98 Room Air 03/21/25 04:11 98.1 73 17 121/59 96 Room Air LABS: Laboratory: Test 03/21/25 11:20 03/21/25 05:06 03/20/25 06:15 03/19/25 22:11 Range/Units Whole Blood Glucose 105 70-110 MG/DL White Blood Count 8.4 # 4.8-10.8 K/uL Red Blood Count 3.94 L 4.00-5.50 MIL/uL Hemoglobin 11.7 L 12.0-16.0 g/dL Hematocrit 34.7 L 36-48 % Mean Corpuscular Volume 88.1 79-99 fL Mean Corpuscular Hemoglobin 29.7 27.0-33.0 pg Mean Corpuscular Hemoglobin Concent 33.7 32.0-36.0 g/dL Red Cell Distribution Width 13.2 11.0-15.5 % Platelet Count 198 130-400 K/uL Mean Platelet Volume 9.3 7.5-10.5 fL Nucleated Red Blood Cells 0.0 0.0-0.19 % Sodium Level 139 136-145 mmol/L Potassium Level 4.0 3.5-5.1 mmol/L Chloride Level 107 101-111 mmol/L Carbon Dioxide Level 26 21-32 mmol/L Blood Urea Nitrogen 6 L 7-18 mg/dL Creatinine 0.9 0.5-1.0 mg/dL Glomerular Filtration Rate Calc 74 >90 mL/min Random Glucose 126 H 70-105 mg/dL Total Calcium 8.1 L 8.5-10.1 mg/dL Magnesium Level 2.10 1.80-2.40 mg/dL Total Bilirubin 0.7 0.2-1.0 mg/dL Aspartate Amino Transf (AST/SGOT) 45 H 10-37 U/L Alanine Aminotransferase (ALT/SGPT) 67 12-78 U/L Alkaline Phosphatase 104 50-136 U/L Total Protein 6.1 6.0-8.3 g/dL Albumin 2.5 L 3.5-5.0 g/dL Phosphorus Level 1.7 L 2.5-4.9 mg/dL Thyroid Stimulating Hormone (TSH) 1.32 0.36-3.74 uIU/mL Group A Streptococcus Rapid negative NEGATIVE Test 03/19/25 21:34 03/19/25 17:33 03/19/25 17:25 Range/Units Lactic Acid Level 2.0 0.8-2.5 mmol/L Immature Granulocyte % (Auto) 0.5 0-1 % Neutrophils (%) (Auto) 95.1 H 40.0-77.0 % Lymphocytes (%) (Auto) 2.9 L 21.0-51.0 % Monocytes (%) (Auto) 1.2 L 3.0-13.0 % Eosinophils (%) (Auto) 0.1 0.0-8.0 % Basophils (%) (Auto) 0.2 0.0-5.0 % Neutrophils # (Auto) 13.6 H 1.8-7.7 K/uL Lymphocytes # (Auto) 0.4 L 1.0-4.8 K/uL Monocytes # (Auto) 0.2 0.1-1.0 K/uL Eosinophils # (Auto) 0.01 0.00-0.70 K/uL Basophils # (Auto) 0.03 0.00-0.20 K/uL Absolute Immature Granulocyte (auto 0.07 0-1 K/uL White Cell Morphology Comment See comments Urine Color COLORLESS YELLOW Urine Appearance CLEAR CLEAR Urine pH 5.0 5.0-8.0 Urine Specific [place] 1.007 1.001-1.031 Urine Protein NEGATIVE NEGATIVE mg/dL Urine Glucose (UA) NEGATIVE NEGATIVE mg/dL Urine Ketones NEGATIVE NEGATIVE mg/dL Urine Occult Blood NEGATIVE NEGATIVE Urine Nitrate NEGATIVE NEGATIVE Urine Bilirubin NEGATIVE NEGATIVE mg/dL Urine Urobilinogen 0.2 0.2-1.0 mg/dL Urine Leukocyte Esterase NEGATIVE NEGATIVE Sim/uL Total Creatine Kinase 57 21-232 U/L Troponin I High Sensitivity < 4 L 4-50 ng/L B-Type Natriuretic Peptide 26 0-100 pg/mL Influenza Type A Antigen Negative For Type A NEGATIVE Influenza Type B Antigen Negative For Type B NEGATIVE SARS-CoV-2, RNA, NAAT NEGATIVE SARS CoV-2 NEGATIVE Current Medications Medications (Trade) Dose Ordered Sig/Sancho Route PRN Reason Start Time Stop Time Status Last Admin Dose Admin Acetaminophen (TYLenol 325MG TAB) 650 mg Q6H PRN PO FEVER/MILD PAIN LEVEL 1-3 03/19/25 22:00 04/18/25 21:59 03/20/25 23:28 650 MG Acetaminophen (TYLenol 650MG SUPPOSITORY) 650 mg Q6H PRN RC FEVER / MILD PAIN 1-3 IF NPO 03/19/25 22:00 04/18/25 21:59 Acetaminophen/ Hydrocodone Bitart (NORco 5/325MG) FOR MODERATE PAIN SC... Q6H PRN PO PAIN 4-10 03/19/25 22:00 03/20/25 14:20 DC Atorvastatin Calcium (LIPItor 10MG) 10 mg HS PO 03/20/25 21:00 04/19/25 20:59 03/20/25 20:03 10 MG Dextrose (D50w) 50 ml AD PRN IV HYPOGLYCEMIA PROTOCOL 03/19/25 22:30 04/18/25 22:29 Docusate Sodium (COLace 100MG CAP) 100 mg BID PRN PO CONSTIPATION 03/19/25 22:00 04/18/25 21:59 Famotidine (Pepcid 20mg Vial) 20 mg BID IV 03/20/25 09:00 04/19/25 08:59 03/21/25 09:38 20 MG Glucagon (Glucagon 1mg Kit) 1 mg AD PRN IM HYPOGLYCEMIA PROTOCOL 03/19/25 22:30 04/18/25 22:29 Hydromorphone HCl (DiLAUDid 1MG INJ) 1 mg Q3H PRN IVP SEVERE PAIN (7-10) 03/20/25 14:30 03/25/25 14:29 Insulin Human Regular (humuLIN R 100 UNIT/ML 3ML) INSULIN SLIDING SCAL... ACHS SQ 03/20/25 07:30 04/19/25 07:29 Ketorolac Tromethamine (toRADol) 30 mg Q6H IVP 03/20/25 14:30 03/25/25 14:29 03/21/25 09:39 30 MG Lactated Ringer's 1,000 ml @ 125 mls/hr Q8H IV 03/19/25 21:30 04/18/25 21:29 03/20/25 20:03 125 MLS/HR Lactulose (Constulose 20gm/ 30ml Udcup) 20 gm Q6H PRN PO CONSTIPATION 03/19/25 22:00 04/18/25 21:59 Lisinopril (Prinivil 10mg) 10 mg DAILY PO 03/20/25 09:00 04/19/25 08:59 Magnesium Oxide (Mag-Ox) 400 mg ONCE STAT PO 03/19/25 18:51 03/19/25 18:58 DC Magnesium Sulfate 50 ml @ 0 mls/hr PROTOCOL PRN IV MAGNESIUM PROTOCOL 03/19/25 22:30 04/18/25 22:29 03/20/25 07:07 0 MLS/HR Ondansetron HCl (zoFRAN 4MG INJ) 4 mg Q6H PRN IVP NAUSEA/VOMITING 03/19/25 22:00 04/18/25 21:59 Piperacillin Sod/ Tazobactam Sod (Zosyn 3.375gm+NS 50ml) 3.375 gm Q8H IVPB 03/20/25 03:00 03/30/25 02:59 03/21/25 11:10 3.375 GM Potassium Chloride 100 ml @ 100 mls/hr AD PRN IV POTASSIUM PROTOCOL 03/19/25 22:30 04/18/25 22:29 Potassium Chloride (K-Dur/Klor-Con 20meq) 20 meq AD PRN PO POTASSIUM PROTOCOL 03/19/25 22:30 04/18/25 22:29 03/20/25 02:38 20 MEQ Potassium Chloride (KCl 10% Elixir 20meq/15ml) 20 meq AD PRN PO POTASSIUM PROTOCOL 03/19/25 22:30 04/18/25 22:29 Sodium Chloride (NS 50ml) 50 ml AD IV 03/20/25 03:00 03/20/25 14:21 DC Temazepam (restORIL 15 MG CAP) 15 mg HS PRN PO INSOMNIA/SLEEP 03/19/25 22:00 04/18/25 21:59 DIAGNOSTICS / RADIOLOGY: [ ] ASSESSMENT: Acute diverticulitis around the distal descending and proximal sigmoid colon, POA, per CT on 03/19/2025 Sepsis, POA, 2/2 above Intractable abdominal pain with acute N/V/D, POA Acute febrile illness, POA Fatty liver, POA Leukocytosis/lactic acidosis, POA GBW, POA Diabetes mellitus with hyperglycemia, POA Electrolyte derangement (hypomagnesemia, hypocalcemia), POA Hypertension Hypercholesteremia PLAN: patient remains admitted to the medical floor, case discussed with the RN, no acute events overnight, she is hemodynamically stable, afebrile, saturating normal on room air, leukocytosis resolved, the time of my visit getting IV fluids, as well as IV antibiotics. The patient is currently NPO, with are clear liquid diet, advanced as tolerated, infectious disease input noted and appreciated, continue to follow surgical input and recommendation as well. Discussed with the patient, anticipate discharge home in the next 24-48 hours if medically stable. Patient in agreement. NEURO: Minimize central acting medications as possible. Fall Precautions. Well lighted room through the day and minimize interruptions through the night to prevent acute delirium. PULMONARY: Supplemental 02 as needed BiPAP as necessary, for respiratory distress Titrate Fio2 to keep Spo2 > or = 90% DuoNebs and CPT as needed IS hourly while awake for pulmonary hygiene prn Out of bed to chair as tolerated Maintain aspiration precautions at all times CARDIOVASCULAR: Follow hemodynamics. Vital signs per facility protocol GI & NUTRITION: Continue nutritional support Aspirations precautions Prokinetic agents and laxatives as needed KIDNEYS & ELECTROLYTES: Strict monitoring of intake and output Daily weights Avoid nephrotoxic agents Monitor electrolytes and replace as needed Goal urine output of 30mL/hr or 0.5mL/kg/hr Medications to be dosed according to renal function. Avoid contrast if possible ENDOCRINE: Maintain blood glucose between 100-180 at all times. Insulin sliding scale for blood glucose management Hypoglycemia and hyperglycemia protocol in place INFECTIOUS DISEASE: Trend temperature, WBC and procalcitonin level Follow cultures, deescalate antibiotics as soon as possible. Panculture if new onset fever HEMATOLOGY & COAGULATION: Monitor H&H. Keep Hgb > 7 Transfuse 1 unit of PRBC for Hgb < 7 Transfuse 1 pack of platelets of platelets < 20, 000 Watch for any signs and symptoms of bleeding SKIN: Pressure ulcer prevention per facility protocol Specialty mattress as needed ORTHO/REHAB Continue PT/OT PRN: MEDICATIONS Tylenol 650 mg po every 4 hrs for fever zofran 4 mg IV every 6 hrs for n/v Hydralazine 5 mg IV every 4 hrs systolic pressure > 160 bowel regiment: lactulose 20 gm PO BID PRN constipation Supportive measures: Continue GI and DVT prophylaxis Disposition: Pending improvement in clinical condition All questions answered time spent: > 35 min SHANE MAURER MD Mar 21, 2025 12:11
--- NOTE | 2025-03-21 14:59 | PN ---
GENERAL SURGERY PROGRESS NOTE DATE OF SERVICE: Mar 21, 2025 TIME OF SERVICE: 14:58 Minimal abdominal discomfort No nausea or vomiting No fever PROBLEM LISTS: [ ] Acute diverticulitis INTERVAL HISTORY: [ ] Improving PHYSICAL EXAMINATION: GENERAL: [Patient is lying comfortably in bed, not in any obvious distress.] HEAD: [Normal with no signs of head trauma.] EYES: [Not pale not jaundiced afebrile to touch.] ENT: [ Normal.] NECK: [Supple,no tenderness,no lymphadenopathy,no masses,no thyromegaly ,no bruits, no JVD.] LUNGS: [Clear breath sounds bilaterally. No wheezes, rales, or rhonchi.] HEART: [Regular rate and rhythm. Normal S1 and S2, without murmurs, rub or gallop.] VASC: [No edema. Peripheral pulses normal and equal in all extremities.] ABD: [Soft nontender.] : [Normal, no suprapubic tenderness.] LYMPH: [No lymphadenopathy noted.] EXT: [ Warm soft, non tender.] SKIN: [ No rashes or lesions.] NEURO: [ Awake Alert and oriented x3.] LABORATORY: [ ] Hematology Labs: Test 03/21/25 05:06 03/19/25 17:33 Range/Units White Blood Count 8.4 # 4.8-10.8 K/uL Red Blood Count 3.94 L 4.00-5.50 MIL/uL Hemoglobin 11.7 L 12.0-16.0 g/dL Hematocrit 34.7 L 36-48 % Mean Corpuscular Volume 88.1 79-99 fL Mean Corpuscular Hemoglobin 29.7 27.0-33.0 pg Mean Corpuscular Hemoglobin Concent 33.7 32.0-36.0 g/dL Red Cell Distribution Width 13.2 11.0-15.5 % Platelet Count 198 130-400 K/uL Mean Platelet Volume 9.3 7.5-10.5 fL Nucleated Red Blood Cells 0.0 0.0-0.19 % Immature Granulocyte % (Auto) 0.5 0-1 % Neutrophils (%) (Auto) 95.1 H 40.0-77.0 % Lymphocytes (%) (Auto) 2.9 L 21.0-51.0 % Monocytes (%) (Auto) 1.2 L 3.0-13.0 % Eosinophils (%) (Auto) 0.1 0.0-8.0 % Basophils (%) (Auto) 0.2 0.0-5.0 % Neutrophils # (Auto) 13.6 H 1.8-7.7 K/uL Lymphocytes # (Auto) 0.4 L 1.0-4.8 K/uL Monocytes # (Auto) 0.2 0.1-1.0 K/uL Eosinophils # (Auto) 0.01 0.00-0.70 K/uL Basophils # (Auto) 0.03 0.00-0.20 K/uL Absolute Immature Granulocyte (auto 0.07 0-1 K/uL White Cell Morphology Comment See comments Chemistry Labs: Test 03/21/25 11:20 03/21/25 05:06 03/20/25 06:15 03/19/25 21:34 Range/Units Whole Blood Glucose 105 70-110 MG/DL Sodium Level 139 136-145 mmol/L Potassium Level 4.0 3.5-5.1 mmol/L Chloride Level 107 101-111 mmol/L Carbon Dioxide Level 26 21-32 mmol/L Blood Urea Nitrogen 6 L 7-18 mg/dL Creatinine 0.9 0.5-1.0 mg/dL Glomerular Filtration Rate Calc 74 >90 mL/min Random Glucose 126 H 70-105 mg/dL Total Calcium 8.1 L 8.5-10.1 mg/dL Magnesium Level 2.10 1.80-2.40 mg/dL Total Bilirubin 0.7 0.2-1.0 mg/dL Aspartate Amino Transf (AST/SGOT) 45 H 10-37 U/L Alanine Aminotransferase (ALT/SGPT) 67 12-78 U/L Alkaline Phosphatase 104 50-136 U/L Total Protein 6.1 6.0-8.3 g/dL Albumin 2.5 L 3.5-5.0 g/dL Phosphorus Level 1.7 L 2.5-4.9 mg/dL Thyroid Stimulating Hormone (TSH) 1.32 0.36-3.74 uIU/mL Lactic Acid Level 2.0 0.8-2.5 mmol/L Test 03/19/25 17:33 Range/Units Total Creatine Kinase 57 21-232 U/L Troponin I High Sensitivity < 4 L 4-50 ng/L B-Type Natriuretic Peptide 26 0-100 pg/mL DIAGNOSTICS / RADIOLOGY: [Copy/Paste Echos/Imaging Report here] ASSESSMENT: [] Acute diverticulitis Improving PLAN: [Continue IV antibiotics Clears NIKI ROWE MD Mar 21, 2025 14:59
--- NOTE | 2025-03-21 15:30 | PN ---
INFECTIOUS DISEASE PROGRESS NOTE Date of Service: Mar 21, 2025 SUBJECTIVE: This 59 year old female patient is being seen today at bedside. Patient denies pain at this time. No nausea or vomiting. Patient is calm. In no distress. Patient remains on Zosyn. Patient has been placed on clear liquid diet. No acute event over night we continue to follow patient. WBC 8.4 as of this morning. No other issues or concerns at this time. We continue to follow patient closely. PHYSICAL EXAM EYES: Anicteric. Pupils equal and reactive. HENT: No oral thrush seen, moist Oral mucosa NECK: Supple, no JVD or thyromegaly. LUNGS: Good air entry. No rales, no rhonchi. CARDIOVASCULAR: S1, S2 regular. No murmur heard. ABDOMEN: Soft, non tender, bowel sounds present, no organomegaly CENTRAL NERVOUS SYSTEM: Awake, alert, oriented x 3. No focal deficits. SKIN: No rashes, no swelling. LYMPHATICS: No peripheral lymphadenopathy MUSCULOSKELETAL: No joint swelling, erythema or tenderness. EXTREMITIES: No cyanosis or clubbing BACK: No deformity, no pressure ulcer. GENITOURINARY: No dysuria or hematuria Vital Sign (Last 12 Hours) 03/21/25 03/21/25 03/21/25 04:11 07:49 11:43 Temp 98.1 98.2 98.4 Pulse 73 81 85 Resp 17 19 19 B/P (MAP) 121/59 125/76 133/85 Pulse Ox 96 98 95 O2 Delivery Room Air Room Air Room Air Intake & Output (last 24hrs) 03/20/25 03/20/25 03/21/25 15:00 23:00 07:00 Intake Total 1300.0 ml Balance 1300.0 ml LABS: Laboratory: Test 03/21/25 11:20 03/21/25 05:06 03/20/25 06:15 03/19/25 22:11 Range/Units Whole Blood Glucose 105 70-110 MG/DL White Blood Count 8.4 # 4.8-10.8 K/uL Red Blood Count 3.94 L 4.00-5.50 MIL/uL Hemoglobin 11.7 L 12.0-16.0 g/dL Hematocrit 34.7 L 36-48 % Mean Corpuscular Volume 88.1 79-99 fL Mean Corpuscular Hemoglobin 29.7 27.0-33.0 pg Mean Corpuscular Hemoglobin Concent 33.7 32.0-36.0 g/dL Red Cell Distribution Width 13.2 11.0-15.5 % Platelet Count 198 130-400 K/uL Mean Platelet Volume 9.3 7.5-10.5 fL Nucleated Red Blood Cells 0.0 0.0-0.19 % Sodium Level 139 136-145 mmol/L Potassium Level 4.0 3.5-5.1 mmol/L Chloride Level 107 101-111 mmol/L Carbon Dioxide Level 26 21-32 mmol/L Blood Urea Nitrogen 6 L 7-18 mg/dL Creatinine 0.9 0.5-1.0 mg/dL Glomerular Filtration Rate Calc 74 >90 mL/min Random Glucose 126 H 70-105 mg/dL Total Calcium 8.1 L 8.5-10.1 mg/dL Magnesium Level 2.10 1.80-2.40 mg/dL Total Bilirubin 0.7 0.2-1.0 mg/dL Aspartate Amino Transf (AST/SGOT) 45 H 10-37 U/L Alanine Aminotransferase (ALT/SGPT) 67 12-78 U/L Alkaline Phosphatase 104 50-136 U/L Total Protein 6.1 6.0-8.3 g/dL Albumin 2.5 L 3.5-5.0 g/dL Phosphorus Level 1.7 L 2.5-4.9 mg/dL Thyroid Stimulating Hormone (TSH) 1.32 0.36-3.74 uIU/mL Group A Streptococcus Rapid negative NEGATIVE Test 03/19/25 21:34 03/19/25 17:33 03/19/25 17:25 Range/Units Lactic Acid Level 2.0 0.8-2.5 mmol/L Immature Granulocyte % (Auto) 0.5 0-1 % Neutrophils (%) (Auto) 95.1 H 40.0-77.0 % Lymphocytes (%) (Auto) 2.9 L 21.0-51.0 % Monocytes (%) (Auto) 1.2 L 3.0-13.0 % Eosinophils (%) (Auto) 0.1 0.0-8.0 % Basophils (%) (Auto) 0.2 0.0-5.0 % Neutrophils # (Auto) 13.6 H 1.8-7.7 K/uL Lymphocytes # (Auto) 0.4 L 1.0-4.8 K/uL Monocytes # (Auto) 0.2 0.1-1.0 K/uL Eosinophils # (Auto) 0.01 0.00-0.70 K/uL Basophils # (Auto) 0.03 0.00-0.20 K/uL Absolute Immature Granulocyte (auto 0.07 0-1 K/uL White Cell Morphology Comment See comments Urine Color COLORLESS YELLOW Urine Appearance CLEAR CLEAR Urine pH 5.0 5.0-8.0 Urine Specific [place] 1.007 1.001-1.031 Urine Protein NEGATIVE NEGATIVE mg/dL Urine Glucose (UA) NEGATIVE NEGATIVE mg/dL Urine Ketones NEGATIVE NEGATIVE mg/dL Urine Occult Blood NEGATIVE NEGATIVE Urine Nitrate NEGATIVE NEGATIVE Urine Bilirubin NEGATIVE NEGATIVE mg/dL Urine Urobilinogen 0.2 0.2-1.0 mg/dL Urine Leukocyte Esterase NEGATIVE NEGATIVE Sim/uL Total Creatine Kinase 57 21-232 U/L Troponin I High Sensitivity < 4 L 4-50 ng/L B-Type Natriuretic Peptide 26 0-100 pg/mL Influenza Type A Antigen Negative For Type A NEGATIVE Influenza Type B Antigen Negative For Type B NEGATIVE SARS-CoV-2, RNA, NAAT NEGATIVE SARS CoV-2 NEGATIVE DIAGNOSTICS / RADIOLOGY: EXAM: CT Abdomen and Pelvis with IV contrast. CLINICAL HISTORY: Severe lower abdominal pain. TECHNIQUE: Thin collimated axial CT images of the abdomen and pelvis were obtained, with sagittal and coronal reformatted images also submitted. A CT scan is done according to ALARA (As Low As Reasonably Achievable). CONTRAST: 75 cc Omnipaque [id number]. COMPARISON: None. FINDINGS: Unremarkable visualised lung parenchyma. There is no focal abnormality appreciated within the liver, gallbladder, pancreas, spleen, adrenals, or kidneys. Fatty liver. Bowel loops are normal in calibre without evidence of obstruction or ileus. Sigmoid and descending colonic diverticulosis with adjacent fatty stranding. The appendix is unremarkable. There is no abnormality within the urinary bladder. Unremarkable reproductive organs. No lymphadenopathy. No free fluid. No pneumoperitoneum. No gross abnormality in the abdominal vessels. There is no acute osseous abnormality. IMPRESSIONS: Acute diverticulitis around the distal descending and proximal sigmoid colon without perforation or abscess. Fatty liver. /[place] ASSESSMENT: * Gram-negative bacteremia and sepsis. * Active diverticulitis. * Abdominal pain. * Diabetes mellitus. PLAN: * Continue Zosyn. * Continue pain management. * Follow up culture. * Continue antiemetic. * Continue antidiabetic. * The patient will be followed up closely. * Clear liquid diet * follow general surgery recommendations This case has been discussed with my supervising physician Dr. Garcia. The case has been discussed and agreed upon. SELENA SILVERIO [facility] Mar 21, 2025 15:30
[2025-03-22] VITALS (7 sets, daily range): BP systolic 126–161; BP diastolic 76–99; PULSE 67–75; RESP 18–20; TEMP 97.7–98.1; O2SAT 97
[2025-03-22 05:44] LABS: NUCLEATED RED BLOOD CELLS 0.0 % (0.0-0.19); PLATELET COUNT (AUTO) 214.0 K/uL (130-400); RED BLOOD CELL COUNT(AUTO) 3.56 MIL/uL (4.00-5.50); RED CELL DISTRIBUTION WIDTH 13.0 % (11.0-15.5); WHITE BLOOD COUNT (AUTO) 7.1 K/uL (4.8-10.8)
[2025-03-22 06:00] LABS: ASPARTATE AMINOTRANSFERASE 90.0 U/L (10-37); CREATININE 0.6 mg/dL (0.5-1.0); GLOMERULAR FILTR. RATE CALC 104.0 mL/min (>90); GLUCOSE,RANDOM 101.0 mg/dL (70-105); SODIUM SERUM 139.0 mmol/L (136-145); TOTAL PROTEIN, SERUM 6.1 g/dL (6.0-8.3); UREA NITROGEN, BLOOD 6.0 mg/dL (7-18)
[2025-03-22] MEDS: FAMOTIDINE 20MG TAB PO SCH (09:03)
--- NOTE | 2025-03-22 15:48 | PN ---
[facility] PROGRESS NOTE Date of Service: Mar 22, 2025 Time of Service: 15:46 SUBJECTIVE: 03/20 the patient has been seen and examined at bedside, case discussed with the RN, patient remains hemodynamically stable, blood pressure 115/70, patient is still spiking fever, maximum temperature today 103.6. She complains of mild abdominal discomfort, still with persistent leukocytosis, WBC today 13.5. Chest x-ray no acute cardiopulmonary pathology. CT of the abdomen showing acute diverticulitis around the distal descending and proximal sigmoid colon without perforation or abscess. We will keep the patient NPO, supportive care with IV fluids, pain medication, broad-spectrum IV antibiotics. Infectious Disease consultation requested, we will follow input and recommendation. Surgical consultation requested, we will follow input and recommendation. 03/21 patient remains admitted to the medical floor, case discussed with the RN, no acute events overnight, she is hemodynamically stable, afebrile, saturating normal on room air, leukocytosis resolved, the time of my visit getting IV fluids, as well as IV antibiotics. The patient is currently NPO, with are clear liquid diet, advanced as tolerated, infectious disease input noted and appreciated, continue to follow surgical input and recommendation as well. Discussed with the patient, anticipate discharge home in the next 24-48 hours if medically stable. Patient in agreement. 03/22 patient remains admitted to the medical floor, case discussed with the RN, no acute events overnight, remains hemodynamically stable, afebrile, saturating normal on room air, diet has been advanced to full diet, tolerating well, no nausea, no vomiting, no abdominal discomfort, results of blood culture positive for Gram-negative rods, final identification pending, ID consultation requested, input noted and appreciated. Continue to follow repeat two sets of blood culture. Continue to follow surgical input and recommendation. The patient noted to have mildly elevated liver enzymes, we will request ultrasound of the liver for further evaluation, discussed with the patient, all questions answered, in agreement. REVIEW OF SYSTEMS 12-point ROS reviewed with the patient. All pertinent positives mentioned above. Otherwise negative, noncontributory, non-pertinent PHYSICAL EXAM GENERAL APPEARANCE: The patient is awake, alert, and oriented, in no acute cardiopulmonary distress. NEUROLOGICAL: Cranial nerves II-XII grossly intact. Motor is 5/5 in bilateral upper and lower extremities proximal to distal. No sensory deficits. HEENT: Face is symmetric. Pupils are equal and reactive. Extraocular movements are intact. NECK: Supple. No JVD. No thyromegaly. No submental, submandibular, pre-/pos tauricular, occipital or supraclavicular lymphadenopathy. CHEST: Normal chest expansion. No Telemetry. LUNGS: Absence of any rales, rhonchi or any wheezing. CARDIOVASCULAR: Regular. S1 and S2 normal. No appreciable rubs, murmurs or gallops. ABDOMEN: Tenderness To deep palpation left lower quadrant. : Deferred. No Queen. EXTREMITIES: Non-edematous and not cyanotic. No clubbing. Good capillary refill. SKIN: No skin breakdown. Vital Signs (last 8hr) Date Time Temp Pulse Resp B/P (MAP) Pulse Ox O2 Delivery O2 Flow Rate FiO2 03/22/25 12:00 97.9 68 20 139/76 92 Room Air 03/22/25 08:00 98.1 75 20 126/97 97 Room Air LABS: Laboratory: Test 03/22/25 11:26 03/22/25 05:24 Range/Units Whole Blood Glucose 196 #H 70-110 MG/DL White Blood Count 7.1 4.8-10.8 K/uL Red Blood Count 3.56 L 4.00-5.50 MIL/uL Hemoglobin 10.6 L 12.0-16.0 g/dL Hematocrit 30.7 L 36-48 % Mean Corpuscular Volume 86.2 79-99 fL Mean Corpuscular Hemoglobin 29.8 27.0-33.0 pg Mean Corpuscular Hemoglobin Concent 34.5 32.0-36.0 g/dL Red Cell Distribution Width 13.0 11.0-15.5 % Platelet Count 214 130-400 K/uL Mean Platelet Volume 9.7 7.5-10.5 fL Nucleated Red Blood Cells 0.0 0.0-0.19 % Sodium Level 139 136-145 mmol/L Potassium Level 3.8 3.5-5.1 mmol/L Chloride Level 106 101-111 mmol/L Carbon Dioxide Level 22 21-32 mmol/L Blood Urea Nitrogen 6 L 7-18 mg/dL Creatinine 0.6 0.5-1.0 mg/dL Glomerular Filtration Rate Calc 104 >90 mL/min Random Glucose 101 70-105 mg/dL Total Calcium 8.0 L 8.5-10.1 mg/dL Magnesium Level 1.70 L 1.80-2.40 mg/dL Total Bilirubin 0.7 0.2-1.0 mg/dL Aspartate Amino Transf (AST/SGOT) 90 H 10-37 U/L Alanine Aminotransferase (ALT/SGPT) 103 H 12-78 U/L Alkaline Phosphatase 187 H 50-136 U/L Total Protein 6.1 6.0-8.3 g/dL Albumin 2.4 L 3.5-5.0 g/dL Current Medications Medications (Trade) Dose Ordered Sig/Sancho Route PRN Reason Start Time Stop Time Status Last Admin Dose Admin Acetaminophen (TYLenol 325MG TAB) 650 mg Q6H PRN PO FEVER/MILD PAIN LEVEL 1-3 03/19/25 22:00 04/18/25 21:59 03/21/25 18:55 650 MG Acetaminophen (TYLenol 650MG SUPPOSITORY) 650 mg Q6H PRN RC FEVER / MILD PAIN 1-3 IF NPO 03/19/25 22:00 04/18/25 21:59 Acetaminophen/ Hydrocodone Bitart (NORco 5/325MG) FOR MODERATE PAIN SC... Q6H PRN PO PAIN 4-10 03/19/25 22:00 03/20/25 14:20 DC Atorvastatin Calcium (LIPItor 10MG) 10 mg HS PO 03/20/25 21:00 04/19/25 20:59 03/21/25 20:43 10 MG Dextrose (D50w) 50 ml AD PRN IV HYPOGLYCEMIA PROTOCOL 03/19/25 22:30 04/18/25 22:29 Docusate Sodium (COLace 100MG CAP) 100 mg BID PRN PO CONSTIPATION 03/19/25 22:00 04/18/25 21:59 Famotidine (Pepcid 20mg Vial) 20 mg BID IV 03/20/25 09:00 03/22/25 08:48 DC 03/21/25 20:43 20 MG Famotidine (Pepcid 20mg Tab) 20 mg BID PO 03/22/25 09:00 04/21/25 08:59 03/22/25 09:03 20 MG Glucagon (Glucagon 1mg Kit) 1 mg AD PRN IM HYPOGLYCEMIA PROTOCOL 03/19/25 22:30 04/18/25 22:29 Hydromorphone HCl (DiLAUDid 1MG INJ) 1 mg Q3H PRN IVP SEVERE PAIN (7-10) 03/20/25 14:30 03/25/25 14:29 Insulin Human Regular (humuLIN R 100 UNIT/ML 3ML) INSULIN SLIDING SCAL... ACHS SQ 03/20/25 07:30 04/19/25 07:29 Ketorolac Tromethamine (toRADol) 30 mg Q6H IVP 03/20/25 14:30 03/21/25 16:19 DC 03/21/25 09:39 30 MG Ketorolac Tromethamine (toRADol) 30 mg Q6H PRN IVP BREAKTHROUGH PAIN 03/21/25 16:30 03/25/25 14:29 03/22/25 11:04 30 MG Lactated Ringer's 1,000 ml @ 125 mls/hr Q8H IV 03/19/25 21:30 04/18/25 21:29 03/22/25 12:47 125 MLS/HR Lactulose (Constulose 20gm/ 30ml Udcup) 20 gm Q6H PRN PO CONSTIPATION 03/19/25 22:00 04/18/25 21:59 Lisinopril (Prinivil 10mg) 10 mg DAILY PO 03/20/25 09:00 04/19/25 08:59 Magnesium Oxide (Mag-Ox) 400 mg ONCE STAT PO 03/19/25 18:51 03/19/25 18:58 DC Magnesium Sulfate 50 ml @ 0 mls/hr PROTOCOL IV 03/22/25 09:30 04/21/25 09:29 Magnesium Sulfate 50 ml @ 0 mls/hr PROTOCOL PRN IV MAGNESIUM PROTOCOL 03/19/25 22:30 03/22/25 09:21 DC 03/22/25 09:04 25 MLS/HR Ondansetron HCl (zoFRAN 4MG INJ) 4 mg Q6H PRN IVP NAUSEA/VOMITING 03/19/25 22:00 04/18/25 21:59 Piperacillin Sod/ Tazobactam Sod (Zosyn 3.375gm+NS 50ml) 3.375 gm Q8H IVPB 03/20/25 03:00 03/30/25 02:59 03/22/25 11:04 3.375 GM Potassium Chloride 100 ml @ 100 mls/hr AD PRN IV POTASSIUM PROTOCOL 03/19/25 22:30 04/18/25 22:29 Potassium Chloride (K-Dur/Klor-Con 20meq) 20 meq AD PRN PO POTASSIUM PROTOCOL 03/19/25 22:30 04/18/25 22:29 03/22/25 09:04 20 MEQ Potassium Chloride (KCl 10% Elixir 20meq/15ml) 20 meq AD PRN PO POTASSIUM PROTOCOL 03/19/25 22:30 04/18/25 22:29 Sodium Chloride (NS 50ml) 50 ml AD IV 03/20/25 03:00 03/20/25 14:21 DC Temazepam (restORIL 15 MG CAP) 15 mg HS PRN PO INSOMNIA/SLEEP 03/19/25 22:00 04/18/25 21:59 DIAGNOSTICS / RADIOLOGY: [ ] ASSESSMENT: Acute diverticulitis around the distal descending and proximal sigmoid colon, POA, per CT on 03/19/2025 Sepsis, POA, 2/2 above Intractable abdominal pain with acute N/V/D, POA Acute febrile illness, POA Fatty liver, POA Leukocytosis/lactic acidosis, POA GBW, POA Diabetes mellitus with hyperglycemia, POA Electrolyte derangement (hypomagnesemia, hypocalcemia), POA Hypertension Hypercholesteremia PLAN: patient remains admitted to the medical floor, case discussed with the RN, no acute events overnight, remains hemodynamically stable, afebrile, saturating normal on room air, diet has been advanced to full diet, tolerating well, no nausea, no vomiting, no abdominal discomfort, results of blood culture positive for Gram-negative rods, final identification pending, ID consultation requested, input noted and appreciated. Continue to follow repeat two sets of blood culture. Continue to follow surgical input and recommendation. The patient noted to have mildly elevated liver enzymes, we will request ultrasound of the liver for further evaluation, discussed with the patient, all questions answered, in agreement. NEURO: Minimize central acting medications as possible. Fall Precautions. Well lighted room through the day and minimize interruptions through the night to prevent acute delirium. PULMONARY: Supplemental 02 as needed BiPAP as necessary, for respiratory distress Titrate Fio2 to keep Spo2 > or = 90% DuoNebs and CPT as needed IS hourly while awake for pulmonary hygiene prn Out of bed to chair as tolerated Maintain aspiration precautions at all times CARDIOVASCULAR: Follow hemodynamics. Vital signs per facility protocol GI & NUTRITION: Continue nutritional support Aspirations precautions Prokinetic agents and laxatives as needed KIDNEYS & ELECTROLYTES: Strict monitoring of intake and output Daily weights Avoid nephrotoxic agents Monitor electrolytes and replace as needed Goal urine output of 30mL/hr or 0.5mL/kg/hr Medications to be dosed according to renal function. Avoid contrast if possible ENDOCRINE: Maintain blood glucose between 100-180 at all times. Insulin sliding scale for blood glucose management Hypoglycemia and hyperglycemia protocol in place INFECTIOUS DISEASE: Trend temperature, WBC and procalcitonin level Follow cultures, deescalate antibiotics as soon as possible. Panculture if new onset fever HEMATOLOGY & COAGULATION: Monitor H&H. Keep Hgb > 7 Transfuse 1 unit of PRBC for Hgb < 7 Transfuse 1 pack of platelets of platelets < 20, 000 Watch for any signs and symptoms of bleeding SKIN: Pressure ulcer prevention per facility protocol Specialty mattress as needed ORTHO/REHAB Continue PT/OT PRN: MEDICATIONS Tylenol 650 mg po every 4 hrs for fever zofran 4 mg IV every 6 hrs for n/v Hydralazine 5 mg IV every 4 hrs systolic pressure > 160 bowel regiment: lactulose 20 gm PO BID PRN constipation Supportive measures: Continue GI and DVT prophylaxis Disposition: Pending improvement in clinical condition All questions answered time spent: > 35 min SHANE MAURER MD Mar 22, 2025 15:48
--- NOTE | 2025-03-22 17:45 | PN ---
INFECTIOUS DISEASE PROGRESS NOTE Date of Service: Mar 22, 2025 SUBJECTIVE: This 59 year old female patient is being seen today at bedside. No fever or chills. Patient was placed on full diet, states to have abdominal discomfort, no nausea or vomiting. Patient remains on antibiotics. Latest blood cultures have had no growth in the first 24 hours. We continue to follow patient. No family at bedside. PHYSICAL EXAM EYES: Anicteric. Pupils equal and reactive. HENT: No oral thrush seen, moist Oral mucosa NECK: Supple, no JVD or thyromegaly. LUNGS: Good air entry. No rales, no rhonchi. CARDIOVASCULAR: S1, S2 regular. No murmur heard. ABDOMEN: Soft, non tender, bowel sounds present, no organomegaly CENTRAL NERVOUS SYSTEM: Awake, alert, oriented x 3. No focal deficits. SKIN: No rashes, no swelling. LYMPHATICS: No peripheral lymphadenopathy MUSCULOSKELETAL: No joint swelling, erythema or tenderness. EXTREMITIES: No cyanosis or clubbing BACK: No deformity, no pressure ulcer. GENITOURINARY: No dysuria or hematuria Vital Sign (Last 12 Hours) 03/22/25 03/22/25 03/22/25 03/22/25 07:30 08:00 12:00 16:00 Temp 98.1 97.9 97.9 Pulse 75 68 75 Resp 20 20 19 B/P (MAP) 126/97 139/76 150/97 Pulse Ox 97 92 99 O2 Delivery Room Air* Room Air Room Air Room Air O2 Flow Rate 0 FiO2 21 Intake & Output (last 24hrs) 03/21/25 03/21/25 03/22/25 15:00 23:00 07:00 Intake Total 650.0 ml 120 ml Balance 650.0 ml 120 ml LABS: Laboratory: Test 03/22/25 15:44 03/22/25 05:24 Range/Units Whole Blood Glucose 110 70-110 MG/DL White Blood Count 7.1 4.8-10.8 K/uL Red Blood Count 3.56 L 4.00-5.50 MIL/uL Hemoglobin 10.6 L 12.0-16.0 g/dL Hematocrit 30.7 L 36-48 % Mean Corpuscular Volume 86.2 79-99 fL Mean Corpuscular Hemoglobin 29.8 27.0-33.0 pg Mean Corpuscular Hemoglobin Concent 34.5 32.0-36.0 g/dL Red Cell Distribution Width 13.0 11.0-15.5 % Platelet Count 214 130-400 K/uL Mean Platelet Volume 9.7 7.5-10.5 fL Nucleated Red Blood Cells 0.0 0.0-0.19 % Sodium Level 139 136-145 mmol/L Potassium Level 3.8 3.5-5.1 mmol/L Chloride Level 106 101-111 mmol/L Carbon Dioxide Level 22 21-32 mmol/L Blood Urea Nitrogen 6 L 7-18 mg/dL Creatinine 0.6 0.5-1.0 mg/dL Glomerular Filtration Rate Calc 104 >90 mL/min Random Glucose 101 70-105 mg/dL Total Calcium 8.0 L 8.5-10.1 mg/dL Magnesium Level 1.70 L 1.80-2.40 mg/dL Total Bilirubin 0.7 0.2-1.0 mg/dL Aspartate Amino Transf (AST/SGOT) 90 H 10-37 U/L Alanine Aminotransferase (ALT/SGPT) 103 H 12-78 U/L Alkaline Phosphatase 187 H 50-136 U/L Total Protein 6.1 6.0-8.3 g/dL Albumin 2.4 L 3.5-5.0 g/dL DIAGNOSTICS / RADIOLOGY: EXAM: CT Abdomen and Pelvis with IV contrast. CLINICAL HISTORY: Severe lower abdominal pain. TECHNIQUE: Thin collimated axial CT images of the abdomen and pelvis were obtained, with sagittal and coronal reformatted images also submitted. A CT scan is done according to ALARA (As Low As Reasonably Achievable). CONTRAST: 75 cc Omnipaque [id number]. COMPARISON: None. FINDINGS: Unremarkable visualised lung parenchyma. There is no focal abnormality appreciated within the liver, gallbladder, pancreas, spleen, adrenals, or kidneys. Fatty liver. Bowel loops are normal in calibre without evidence of obstruction or ileus. Sigmoid and descending colonic diverticulosis with adjacent fatty stranding. The appendix is unremarkable. There is no abnormality within the urinary bladder. Unremarkable reproductive organs. No lymphadenopathy. No free fluid. No pneumoperitoneum. No gross abnormality in the abdominal vessels. There is no acute osseous abnormality. IMPRESSIONS: Acute diverticulitis around the distal descending and proximal sigmoid colon without perforation or abscess. Fatty liver. /[place] ASSESSMENT: * Gram-negative bacteremia and sepsis. * Active diverticulitis. * Abdominal pain. * Diabetes mellitus. PLAN: * Continue Zosyn. * Continue pain management. * Follow up culture. * Continue antiemetic. * Continue antidiabetic. * The patient will be followed up closely. * follow general surgery recommendations This case has been discussed with my supervising physician Dr. Garcia. The case has been discussed and agreed upon. SELENA SILVERIO [facility] Mar 22, 2025 17:45
[2025-03-23] VITALS (8 sets, daily range): BP systolic 131–158; BP diastolic 64–101; PULSE 62–75; RESP 16–20; TEMP 97.8–98.5; O2SAT 97
[2025-03-23 04:58] LABS: NUCLEATED RED BLOOD CELLS 0.0 % (0.0-0.19); PLATELET COUNT (AUTO) 240.0 K/uL (130-400); RED BLOOD CELL COUNT(AUTO) 3.67 MIL/uL (4.00-5.50); RED CELL DISTRIBUTION WIDTH 13.0 % (11.0-15.5); WHITE BLOOD COUNT (AUTO) 7.2 K/uL (4.8-10.8)
[2025-03-23 05:15] LABS: ASPARTATE AMINOTRANSFERASE 96.0 U/L (10-37); CREATININE 0.6 mg/dL (0.5-1.0); GLOMERULAR FILTR. RATE CALC 104.0 mL/min (>90); GLUCOSE,RANDOM 99.0 mg/dL (70-105); SODIUM SERUM 140.0 mmol/L (136-145); TOTAL PROTEIN, SERUM 6.2 g/dL (6.0-8.3); UREA NITROGEN, BLOOD 6.0 mg/dL (7-18)
--- NOTE | 2025-03-23 07:32 | HMCIMG ---
EXAMINATION: ULTRASOUND OF THE ABDOMEN (LIMITED) WITH COLOR DOPPLER. CLINICAL HISTORY: Elevated liver enzymes. COMPARISON: CT abdomen and pelvis with contrast dated 03/19/2025. TECHNIQUE: Real-time grayscale ultrasound images of the abdomen. In addition, color Doppler is medically necessary to perform in order to evaluate vascularity and blood flow. FINDINGS: Liver: Normal in caliber, the right hepatic lobe measures 15.8 cm in the craniocaudal dimension. There is increased echogenicity of the hepatic parenchyma. There is no focal hepatic abnormality or intrahepatic biliary ductal dilatation. There is normal spectral Doppler of the main portal vein. Gallbladder: Within normal limits with normal wall thickness (0.32 cm). No hyperemia or pericholecystic free fluid. There is no cholelithiasis. Common bile duct is normal in caliber, measuring 0.40 cm. Pancreas: Head and body appear normal in caliber and echotexture. No calcification or dilated pancreatic duct. Tail is obscured by overlying bowel gas. The right kidney is normal in caliber, the right kidney measures 10.5 x 4.4 x 4.5 cm in craniocaudal, AP, and transverse dimensions respectively. There is normal renal cortical thickness, and cortical echogenicity. There is no renal calculus or hydronephrosis. IMPRESSION: Hepatic steatosis. /Julieth
--- NOTE | 2025-03-23 16:33 | PN ---
[facility] PROGRESS NOTE Date of Service: Mar 23, 2025 Time of Service: 16:31 SUBJECTIVE: 03/20 the patient has been seen and examined at bedside, case discussed with the RN, patient remains hemodynamically stable, blood pressure 115/70, patient is still spiking fever, maximum temperature today 103.6. She complains of mild abdominal discomfort, still with persistent leukocytosis, WBC today 13.5. Chest x-ray no acute cardiopulmonary pathology. CT of the abdomen showing acute diverticulitis around the distal descending and proximal sigmoid colon without perforation or abscess. We will keep the patient NPO, supportive care with IV fluids, pain medication, broad-spectrum IV antibiotics. Infectious Disease consultation requested, we will follow input and recommendation. Surgical consultation requested, we will follow input and recommendation. 03/21 patient remains admitted to the medical floor, case discussed with the RN, no acute events overnight, she is hemodynamically stable, afebrile, saturating normal on room air, leukocytosis resolved, the time of my visit getting IV fluids, as well as IV antibiotics. The patient is currently NPO, with are clear liquid diet, advanced as tolerated, infectious disease input noted and appreciated, continue to follow surgical input and recommendation as well. Discussed with the patient, anticipate discharge home in the next 24-48 hours if medically stable. Patient in agreement. 03/22 patient remains admitted to the medical floor, case discussed with the RN, no acute events overnight, remains hemodynamically stable, afebrile, saturating normal on room air, diet has been advanced to full diet, tolerating well, no nausea, no vomiting, no abdominal discomfort, results of blood culture positive for Gram-negative rods, final identification pending, ID consultation requested, input noted and appreciated. Continue to follow repeat two sets of blood culture. Continue to follow surgical input and recommendation. The patient noted to have mildly elevated liver enzymes, we will request ultrasound of the liver for further evaluation, discussed with the patient, all questions answered, in agreement. 03/23 patient remains admitted to the medical floor, case discussed with the RN, no acute events overnight, hemodynamically stable, afebrile, saturating normal on room air, leukocytosis resolved, WBC 7.2, noted to have worsening elevated liver enzymes with an AST of 96, ALT 148, alkaline phosphatase 222. If continue to get was with a request GI consultation. Liver ultrasound showing hepatic steatosis. Home medications reviewed, with the patient's taking statin at home, we will hold this medication and continue to monitor liver enzymes in a.m.. If better anticipate discharge home. Repeat blood culture has remained negative. Discussed with the patient, in agreement. REVIEW OF SYSTEMS 12-point ROS reviewed with the patient. All pertinent positives mentioned above. Otherwise negative, noncontributory, non-pertinent PHYSICAL EXAM GENERAL APPEARANCE: The patient is awake, alert, and oriented, in no acute cardiopulmonary distress. NEUROLOGICAL: Cranial nerves II-XII grossly intact. Motor is 5/5 in bilateral upper and lower extremities proximal to distal. No sensory deficits. HEENT: Face is symmetric. Pupils are equal and reactive. Extraocular movements are intact. NECK: Supple. No JVD. No thyromegaly. No submental, submandibular, pre- /postauricular, occipital or supraclavicular lymphadenopathy. CHEST: Normal chest expansion. No Telemetry. LUNGS: Absence of any rales, rhonchi or any wheezing. CARDIOVASCULAR: Regular. S1 and S2 normal. No appreciable rubs, murmurs or gallops. ABDOMEN: Tenderness To deep palpation left lower quadrant. : Deferred. No Queen. EXTREMITIES: Non-edematous and not cyanotic. No clubbing. Good capillary refill. SKIN: No skin breakdown. Vital Signs (last 8hr) Date Time Temp Pulse Resp B/P (MAP) Pulse Ox O2 Delivery O2 Flow Rate FiO2 03/23/25 12:00 97.9 65 17 154/75 99 Room Air LABS: Laboratory: Test 03/23/25 11:43 03/23/25 04:30 03/22/25 19:22 Range/Units Whole Blood Glucose 152 H 70-110 MG/DL White Blood Count 7.2 4.8-10.8 K/uL Red Blood Count 3.67 L 4.00-5.50 MIL/uL Hemoglobin 10.9 L 12.0-16.0 g/dL Hematocrit 31.6 L 36-48 % Mean Corpuscular Volume 86.1 79-99 fL Mean Corpuscular Hemoglobin 29.7 27.0-33.0 pg Mean Corpuscular Hemoglobin Concent 34.5 32.0-36.0 g/dL Red Cell Distribution Width 13.0 11.0-15.5 % Platelet Count 240 130-400 K/uL Mean Platelet Volume 9.6 7.5-10.5 fL Nucleated Red Blood Cells 0.0 0.0-0.19 % Sodium Level 140 136-145 mmol/L Potassium Level 3.9 3.5-5.1 mmol/L Chloride Level 106 101-111 mmol/L Carbon Dioxide Level 25 21-32 mmol/L Blood Urea Nitrogen 6 L 7-18 mg/dL Creatinine 0.6 0.5-1.0 mg/dL Glomerular Filtration Rate Calc 104 >90 mL/min Random Glucose 99 70-105 mg/dL Total Calcium 8.4 L 8.5-10.1 mg/dL Magnesium Level 1.90 1.80-2.40 mg/dL Total Bilirubin 0.5 # 0.2-1.0 mg/dL Aspartate Amino Transf (AST/SGOT) 96 H 10-37 U/L Alanine Aminotransferase (ALT/SGPT) 148 #H 12-78 U/L Alkaline Phosphatase 222 H 50-136 U/L Total Protein 6.2 6.0-8.3 g/dL Albumin 2.4 L 3.5-5.0 g/dL Bedside Glucose Comment Notified Nurse Current Medications Medications (Trade) Dose Ordered Sig/Sancho Route PRN Reason Start Time Stop Time Status Last Admin Dose Admin Acetaminophen (TYLenol 325MG TAB) 650 mg Q6H PRN PO FEVER/MILD PAIN LEVEL 1-3 03/19/25 22:00 04/18/25 21:59 03/21/25 18:55 650 MG Acetaminophen (TYLenol 650MG SUPPOSITORY) 650 mg Q6H PRN RC FEVER / MILD PAIN 1-3 IF NPO 03/19/25 22:00 04/18/25 21:59 Acetaminophen/ Hydrocodone Bitart (NORco 5/325MG) FOR MODERATE PAIN SC... Q6H PRN PO PAIN 4-10 03/19/25 22:00 03/20/25 14:20 DC Atorvastatin Calcium (LIPItor 10MG) 10 mg HS PO 03/20/25 21:00 04/19/25 20:59 03/22/25 19:47 10 MG Ceftriaxone Sodium (ROCEphine 1G INJ) 1 gm Q24H IVPB 03/23/25 10:00 03/23/25 12:12 DC Ceftriaxone Sodium (ROCEphine 1G INJ) 1 gm Q24H IVPB 03/23/25 12:00 04/02/25 11:59 03/23/25 12:18 1 GM Dextrose (D50w) 50 ml AD PRN IV HYPOGLYCEMIA PROTOCOL 03/19/25 22:30 04/18/25 22:29 Docusate Sodium (COLace 100MG CAP) 100 mg BID PRN PO CONSTIPATION 03/19/25 22:00 04/18/25 21:59 Famotidine (Pepcid 20mg Vial) 20 mg BID IV 03/20/25 09:00 03/22/25 08:48 DC 03/21/25 20:43 20 MG Famotidine (Pepcid 20mg Tab) 20 mg BID PO 03/22/25 09:00 04/21/25 08:59 03/23/25 09:37 20 MG Glucagon (Glucagon 1mg Kit) 1 mg AD PRN IM HYPOGLYCEMIA PROTOCOL 03/19/25 22:30 04/18/25 22:29 Hydromorphone HCl (DiLAUDid 1MG INJ) 1 mg Q3H PRN IVP SEVERE PAIN (7-10) 03/20/25 14:30 03/25/25 14:29 Insulin Human Regular (humuLIN R 100 UNIT/ML 3ML) INSULIN SLIDING SCAL... ACHS SQ 03/20/25 07:30 04/19/25 07:29 03/22/25 19:48 8 UNIT Ketorolac Tromethamine (toRADol) 30 mg Q6H IVP 03/20/25 14:30 03/21/25 16:19 DC 03/21/25 09:39 30 MG Ketorolac Tromethamine (toRADol) 30 mg Q6H PRN IVP BREAKTHROUGH PAIN 03/21/25 16:30 03/25/25 14:29 03/23/25 04:47 30 MG Lactated Ringer's 1,000 ml @ 125 mls/hr Q8H IV 03/19/25 21:30 03/23/25 12:12 DC 03/23/25 04:38 125 MLS/HR Lactulose (Constulose 20gm/ 30ml Udcup) 20 gm Q6H PRN PO CONSTIPATION 03/19/25 22:00 04/18/25 21:59 Lisinopril (Prinivil 10mg) 10 mg DAILY PO 03/20/25 09:00 04/19/25 08:59 03/23/25 09:37 10 MG Magnesium Oxide (Mag-Ox) 400 mg ONCE STAT PO 03/19/25 18:51 03/19/25 18:58 DC Magnesium Sulfate 50 ml @ 0 mls/hr PROTOCOL IV 03/22/25 09:30 04/21/25 09:29 Magnesium Sulfate 50 ml @ 0 mls/hr PROTOCOL PRN IV MAGNESIUM PROTOCOL 03/19/25 22:30 03/22/25 09:21 DC 03/22/25 09:04 25 MLS/HR Metronidazole/ Sodium Chloride (flaGYL) 500 mg Q8H IV 03/23/25 10:00 03/23/25 12:12 DC Metronidazole/ Sodium Chloride (flaGYL) 500 mg Q8H IV 03/23/25 12:00 04/02/25 11:59 03/23/25 12:18 500 MG Ondansetron HCl (zoFRAN 4MG INJ) 4 mg Q6H PRN IVP NAUSEA/VOMITING 03/19/25 22:00 04/18/25 21:59 Piperacillin Sod/ Tazobactam Sod (Zosyn 3.375gm+NS 50ml) 3.375 gm Q8H IVPB 03/20/25 03:00 03/23/25 09:55 DC 03/23/25 09:38 3.375 GM Potassium Chloride 100 ml @ 100 mls/hr AD PRN IV POTASSIUM PROTOCOL 03/19/25 22:30 04/18/25 22:29 Potassium Chloride (K-Dur/Klor-Con 20meq) 20 meq AD PRN PO POTASSIUM PROTOCOL 03/19/25 22:30 04/18/25 22:29 03/22/25 17:51 20 MEQ Potassium Chloride (KCl 10% Elixir 20meq/15ml) 20 meq AD PRN PO POTASSIUM PROTOCOL 03/19/25 22:30 04/18/25 22:29 Sodium Chloride (NS 50ml) 50 ml AD IV 03/20/25 03:00 03/20/25 14:21 DC Temazepam (restORIL 15 MG CAP) 15 mg HS PRN PO INSOMNIA/SLEEP 03/19/25 22:00 04/18/25 21:59 DIAGNOSTICS / RADIOLOGY: [ ] ASSESSMENT: Acute diverticulitis around the distal descending and proximal sigmoid colon, POA, per CT on 03/19/2025 Sepsis, POA, 2/2 above Intractable abdominal pain with acute N/V/D, POA Acute febrile illness, POA Fatty liver, POA Leukocytosis/lactic acidosis, POA GBW, POA Diabetes mellitus with hyperglycemia, POA Electrolyte derangement (hypomagnesemia, hypocalcemia), POA Hypertension Hypercholesteremia PLAN: patient remains admitted to the medical floor, case discussed with the RN, no acute events overnight, hemodynamically stable, afebrile, saturating normal on room air, leukocytosis resolved, WBC 7.2, noted to have worsening elevated liver enzymes with an AST of 96, ALT 148, alkaline phosphatase 222. If continue to get was with a request GI consultation. Liver ultrasound showing hepatic steatosis. Home medications reviewed, with the patient's taking statin at home, we will hold this medication and continue to monitor liver enzymes in a.m.. If better anticipate discharge home. Repeat blood culture has remained negative. Discussed with the patient, in agreement. NEURO: Minimize central acting medications as possible. Fall Precautions. Well lighted room through the day and minimize interruptions through the night to prevent acute delirium. PULMONARY: Supplemental 02 as needed BiPAP as necessary, for respiratory distress Titrate Fio2 to keep Spo2 > or = 90% DuoNebs and CPT as needed IS hourly while awake for pulmonary hygiene prn Out of bed to chair as tolerated Maintain aspiration precautions at all times CARDIOVASCULAR: Follow hemodynamics. Vital signs per facility protocol GI & NUTRITION: Continue nutritional support Aspirations precautions Prokinetic agents and laxatives as needed KIDNEYS & ELECTROLYTES: Strict monitoring of intake and output Daily weights Avoid nephrotoxic agents Monitor electrolytes and replace as needed Goal urine output of 30mL/hr or 0.5mL/kg/hr Medications to be dosed according to renal function. Avoid contrast if possible ENDOCRINE: Maintain blood glucose between 100-180 at all times. Insulin sliding scale for blood glucose management Hypoglycemia and hyperglycemia protocol in place INFECTIOUS DISEASE: Trend temperature, WBC and procalcitonin level Follow cultures, deescalate antibiotics as soon as possible. Panculture if new onset fever HEMATOLOGY & COAGULATION: Monitor H&H. Keep Hgb > 7 Transfuse 1 unit of PRBC for Hgb < 7 Transfuse 1 pack of platelets of platelets < 20, 000 Watch for any signs and symptoms of bleeding SKIN: Pressure ulcer prevention per facility protocol Specialty mattress as needed ORTHO/REHAB Continue PT/OT PRN: MEDICATIONS Tylenol 650 mg po every 4 hrs for fever zofran 4 mg IV every 6 hrs for n/v Hydralazine 5 mg IV every 4 hrs systolic pressure > 160 bowel regiment: lactulose 20 gm PO BID PRN constipation Supportive measures: Continue GI and DVT prophylaxis Disposition: Pending improvement in clinical condition All questions answered time spent: > 35 min SHANE MAURER MD Mar 23, 2025 16:33
--- NOTE | 2025-03-23 17:06 | PN ---
INFECTIOUS DISEASE PROGRESS NOTE Date of Service: Mar 23, 2025 SUBJECTIVE: This 59 year old female patient is being seen today at bedside. No fever no chills. No nausea or vomiting. Patient denies chest pain or shortness of breath. Patient has been tolerating oral diet well. No abdominal discomfort. Patient continues with antibiotics. Latest blood cultures continue to be negative. We continue to follow patient closely. PHYSICAL EXAM EYES: Anicteric. Pupils equal and reactive. HENT: No oral thrush seen, moist Oral mucosa NECK: Supple, no JVD or thyromegaly. LUNGS: Good air entry. No rales, no rhonchi. CARDIOVASCULAR: S1, S2 regular. No murmur heard. ABDOMEN: Soft, non tender, bowel sounds present, no organomegaly CENTRAL NERVOUS SYSTEM: Awake, alert, oriented x 3. No focal deficits. SKIN: No rashes, no swelling. LYMPHATICS: No peripheral lymphadenopathy MUSCULOSKELETAL: No joint swelling, erythema or tenderness. EXTREMITIES: No cyanosis or clubbing BACK: No deformity, no pressure ulcer. GENITOURINARY: No dysuria or hematuria Vital Sign (Last 12 Hours) 03/23/25 03/23/25 03/23/25 07:40 08:00 12:00 Temp 98.1 97.9 Pulse 62 65 Resp 16 17 B/P (MAP) 142/89 154/75 Pulse Ox 98 99 O2 Delivery Room Air* Room Air Room Air O2 Flow Rate 0 FiO2 21 Intake & Output (last 24hrs) 03/22/25 03/22/25 03/23/25 15:00 23:00 07:00 Output Total 1 ml Balance -1 ml LABS: Laboratory: Test 03/23/25 11:43 03/23/25 04:30 03/22/25 19:22 Range/Units Whole Blood Glucose 152 H 70-110 MG/DL White Blood Count 7.2 4.8-10.8 K/uL Red Blood Count 3.67 L 4.00-5.50 MIL/uL Hemoglobin 10.9 L 12.0-16.0 g/dL Hematocrit 31.6 L 36-48 % Mean Corpuscular Volume 86.1 79-99 fL Mean Corpuscular Hemoglobin 29.7 27.0-33.0 pg Mean Corpuscular Hemoglobin Concent 34.5 32.0-36.0 g/dL Red Cell Distribution Width 13.0 11.0-15.5 % Platelet Count 240 130-400 K/uL Mean Platelet Volume 9.6 7.5-10.5 fL Nucleated Red Blood Cells 0.0 0.0-0.19 % Sodium Level 140 136-145 mmol/L Potassium Level 3.9 3.5-5.1 mmol/L Chloride Level 106 101-111 mmol/L Carbon Dioxide Level 25 21-32 mmol/L Blood Urea Nitrogen 6 L 7-18 mg/dL Creatinine 0.6 0.5-1.0 mg/dL Glomerular Filtration Rate Calc 104 >90 mL/min Random Glucose 99 70-105 mg/dL Total Calcium 8.4 L 8.5-10.1 mg/dL Magnesium Level 1.90 1.80-2.40 mg/dL Total Bilirubin 0.5 # 0.2-1.0 mg/dL Aspartate Amino Transf (AST/SGOT) 96 H 10-37 U/L Alanine Aminotransferase (ALT/SGPT) 148 #H 12-78 U/L Alkaline Phosphatase 222 H 50-136 U/L Total Protein 6.2 6.0-8.3 g/dL Albumin 2.4 L 3.5-5.0 g/dL Bedside Glucose Comment Notified Nurse DIAGNOSTICS / RADIOLOGY: EXAM: CT Abdomen and Pelvis with IV contrast. CLINICAL HISTORY: Severe lower abdominal pain. TECHNIQUE: Thin collimated axial CT images of the abdomen and pelvis were obtained, with sagittal and coronal reformatted images also submitted. A CT scan is done according to ALARA (As Low As Reasonably Achievable). CONTRAST: 75 cc Omnipaque [id number]. COMPARISON: None. FINDINGS: Unremarkable visualised lung parenchyma. There is no focal abnormality appreciated within the liver, gallbladder, pancreas, spleen, adrenals, or kidneys. Fatty liver. Bowel loops are normal in calibre without evidence of obstruction or ileus. Sigmoid and descending colonic diverticulosis with adjacent fatty stranding. The appendix is unremarkable. There is no abnormality within the urinary bladder. Unremarkable reproductive organs. No lymphadenopathy. No free fluid. No pneumoperitoneum. No gross abnormality in the abdominal vessels. There is no acute osseous abnormality. IMPRESSIONS: Acute diverticulitis around the distal descending and proximal sigmoid colon without perforation or abscess. Fatty liver. /[place] EXAMINATION: ULTRASOUND OF THE ABDOMEN (LIMITED) WITH COLOR DOPPLER. CLINICAL HISTORY: Elevated liver enzymes. COMPARISON: CT abdomen and pelvis with contrast dated 03/19/2025. TECHNIQUE: Real-time grayscale ultrasound images of the abdomen. In addition, color Doppler is medically necessary to perform in order to evaluate vascularity and blood flow. FINDINGS: Liver: Normal in caliber, the right hepatic lobe measures 15.8 cm in the craniocaudal dimension. There is increased echogenicity of the hepatic parenchyma. There is no focal hepatic abnormality or intrahepatic biliary ductal dilatation. There is normal spectral Doppler of the main portal vein. Gallbladder: Within normal limits with normal wall thickness (0.32 cm). No hyperemia or pericholecystic free fluid. There is no cholelithiasis. Common bile duct is normal in caliber, measuring 0.40 cm. Pancreas: Head and body appear normal in caliber and echotexture. No calcification or dilated pancreatic duct. Tail is obscured by overlying bowel gas. The right kidney is normal in caliber, the right kidney measures 10.5 x 4.4 x 4.5 cm in craniocaudal, AP, and transverse dimensions respectively. There is normal renal cortical thickness, and cortical echogenicity. There is no renal calculus or hydronephrosis. IMPRESSION: Hepatic steatosis. /[place] ASSESSMENT: * Gram-negative bacteremia and sepsis. * Active diverticulitis. * Abdominal pain. * Diabetes mellitus. * elevated liver enzymes PLAN: * Continue antibiotics * Continue pain management. * Follow up culture. * Continue antiemetic. * Continue antidiabetic. * The patient will be followed up closely. * follow general surgery recommendations This case has been discussed with my supervising physician DR. Garcia. The case has been discussed and agreed upon. SELENA SILVERIO Mar 23, 2025 17:06
[2025-03-24 03:48] VITALS: BP 112/74; PULSE 68; RESP 16; TEMP 98.2
[2025-03-24 05:36] LABS: NUCLEATED RED BLOOD CELLS 0.0 % (0.0-0.19); PLATELET COUNT (AUTO) 301.0 K/uL (130-400); RED BLOOD CELL COUNT(AUTO) 4.07 MIL/uL (4.00-5.50); RED CELL DISTRIBUTION WIDTH 12.7 % (11.0-15.5); WHITE BLOOD COUNT (AUTO) 7.1 K/uL (4.8-10.8)
[2025-03-24 06:04] LABS: ASPARTATE AMINOTRANSFERASE 85.0 U/L (10-37); CREATININE 0.7 mg/dL (0.5-1.0); GLOMERULAR FILTR. RATE CALC 100.0 mL/min (>90); GLUCOSE,RANDOM 136.0 mg/dL (70-105); SODIUM SERUM 141.0 mmol/L (136-145); TOTAL PROTEIN, SERUM 6.6 g/dL (6.0-8.3); UREA NITROGEN, BLOOD 8.0 mg/dL (7-18)
[2025-03-24] MEDS: MAGNESIUM 2GM PREMIX 50ML 50 ML IV SCH (06:11)
[2025-03-24] MEDS: LACTULOSE 20 GM/30 ML UDCUP PO PRN (06:19)
[2025-03-24 08:00] VITALS: BP 143/86; PULSE 79; RESP 18; TEMP 97.9; O2SAT 98
[2025-03-24] MEDS ORDERED: MAGNESIUM 2GM PREMIX 50ML 50 ML IV SCH (11:30)
[2025-03-24] MEDS: LORATAdine 10 mg 10 MG TABLET PO ONE (11:42)
[2025-03-24 11:45] VITALS: BP 135/79; PULSE 73; RESP 18; TEMP 98
--- NOTE | 2025-03-24 13:21 | CONS ---
GASTROENTEROLOGY CONSULTATION NOTE Date of Consultation: Mar 24, 2025 Time of Consultation: 13:17 History of Present Illness: [WBC today 7.1, hemoglobin 12.0 platelets 301. Chemistry significant for magnesium 1.7. Initial total bilirubin of 0.7 has trended down to 0.4. AST 45 trending up to 85. Initial ALT 67 trending up to 174, alkaline phos of 104, now 241. albumin 2.5. We were consulted for transaminitis. ] Review of Systems: CONSTITUTIONAL: No malaise or change in sensation of wellbeing. ENMT: No rhinorrhea, otorrhea, sinus pain, ear ache. CARDIOVASCULAR: No angina, palpitations, orthopnea or paroxysmal dyspnea. RESPIRATORY: No SOB. GASTROINTESTINAL: No abdominal pain, nausea, vomiting, diarrhea, hematemesis, melena or change in the patient's habitual bowel movements consistency/number. GENITOURINARY: No dysuria, hematuria or change in bladder continence. MUSCULOSKELETAL: No new muscle pain or decrease in muscular strength. No new joint swelling, redness or tenderness. SKIN: No new rash. Past Medical History: [ ] Past Surgical History: [ ] Past Social History: [ ] Family History: [ ] Coded Allergies: No Known Allergies (Unverified Allergy, Unknown, 03/19/25) Physical Exam: GEN: Awake, alert, oriented in person, time and place, and in no acute distress. HEENT: No sinus tenderness. Tympanic membranes were not examined. No rhinorrhea. Oral pharyngeal mucosa is pink, moist and within normal limits. Neck is supple with no cervical lymphadenopathy, thyromegaly or JVD. CHEST: Inspection, palpation and percussion of the chest were unremarkable. Lung auscultation revealed normal breath sounds bilaterally. CARDIAC: PMI is within normal limits. Heart sounds are regular. Normal S1, S2. No gallop or murmur. ABD: Soft, non-tender and not distended. No peritoneal signs on palpation. No organomegaly. Normal bowel sounds. EXT: No cyanosis or clubbing. No edema. SKIN: Intact. No rashes. JOINTS: No evidence of synovitis or acute arthritis. NEURO: Alert and oriented to name, place and person. Cranial nerve examination is unremarkable. No focal motor deficits. Normal speech. Gait is normal. Strength is normal. Vital Sign (Last 24 Hours) 03/23/25 03/24/25 19:05 11:45 Temp 98.1 Pulse 73 Resp 18 B/P (MAP) 135/79 Pulse Ox 97 O2 Delivery Room Air O2 Flow Rate 0 FiO2 21 Laboratory: [ ] Laboratory: Test 03/24/25 10:53 03/24/25 05:13 03/22/25 19:22 Range/Units Whole Blood Glucose 154 H 70-110 MG/DL White Blood Count 7.1 4.8-10.8 K/uL Red Blood Count 4.07 4.00-5.50 MIL/uL Hemoglobin 12.0 12.0-16.0 g/dL Hematocrit 34.6 L 36-48 % Mean Corpuscular Volume 85.0 79-99 fL Mean Corpuscular Hemoglobin 29.5 27.0-33.0 pg Mean Corpuscular Hemoglobin Concent 34.7 32.0-36.0 g/dL Red Cell Distribution Width 12.7 11.0-15.5 % Platelet Count 301 # 130-400 K/uL Mean Platelet Volume 9.2 7.5-10.5 fL Nucleated Red Blood Cells 0.0 0.0-0.19 % Sodium Level 141 136-145 mmol/L Potassium Level 3.6 3.5-5.1 mmol/L Chloride Level 106 101-111 mmol/L Carbon Dioxide Level 24 21-32 mmol/L Blood Urea Nitrogen 8 7-18 mg/dL Creatinine 0.7 0.5-1.0 mg/dL Glomerular Filtration Rate Calc 100 >90 mL/min Random Glucose 136 H 70-105 mg/dL Total Calcium 8.6 8.5-10.1 mg/dL Magnesium Level 1.70 L 1.80-2.40 mg/dL Total Bilirubin 0.4 0.2-1.0 mg/dL Aspartate Amino Transf (AST/SGOT) 85 H 10-37 U/L Alanine Aminotransferase (ALT/SGPT) 174 H 12-78 U/L Alkaline Phosphatase 241 H 50-136 U/L Total Protein 6.6 6.0-8.3 g/dL Albumin 2.5 L 3.5-5.0 g/dL Bedside Glucose Comment Notified Nurse Current Medications Medications (Trade) Dose Ordered Sig/Sancho Route PRN Reason Start Time Stop Time Status Last Admin Dose Admin Acetaminophen (TYLenol 325MG TAB) 650 mg Q6H PRN PO FEVER/MILD PAIN LEVEL 1-3 8/8/25 22:00 04/18/25 21:59 03/24/25 03:14 650 MG Acetaminophen (TYLenol 650MG SUPPOSITORY) 650 mg Q6H PRN RC FEVER / MILD PAIN 1-3 IF NPO 03/19/25 22:00 04/18/25 21:59 Acetaminophen/ Hydrocodone Bitart (NORco 5/325MG) FOR MODERATE PAIN SC... Q6H PRN PO PAIN 4-10 03/19/25 22:00 03/20/25 14:20 DC Atorvastatin Calcium (LIPItor 10MG) 10 mg HS PO 03/20/25 21:00 04/19/25 20:59 03/23/25 20:06 10 MG Ceftriaxone Sodium (ROCEphine 1G INJ) 1 gm Q24H IVPB 03/23/25 10:00 03/23/25 12:12 DC Ceftriaxone Sodium (ROCEphine 1G INJ) 1 gm Q24H IVPB 03/23/25 12:00 04/02/25 11:59 03/24/25 11:42 1 GM Dextrose (D50w) 50 ml AD PRN IV HYPOGLYCEMIA PROTOCOL 03/19/25 22:30 04/18/25 22:29 Docusate Sodium (COLace 100MG CAP) 100 mg BID PRN PO CONSTIPATION 03/19/25 22:00 04/18/25 21:59 Famotidine (Pepcid 20mg Vial) 20 mg BID IV 03/20/25 09:00 03/22/25 08:48 DC 03/21/25 20:43 20 MG Famotidine (Pepcid 20mg Tab) 20 mg BID PO 03/22/25 09:00 04/21/25 08:59 03/24/25 08:12 20 MG Glucagon (Glucagon 1mg Kit) 1 mg AD PRN IM HYPOGLYCEMIA PROTOCOL 03/19/25 22:30 04/18/25 22:29 Hydromorphone HCl (DiLAUDid 1MG INJ) 1 mg Q3H PRN IVP SEVERE PAIN (7-10) 03/20/25 14:30 03/25/25 14:29 Insulin Human Regular (humuLIN R 100 UNIT/ML 3ML) INSULIN SLIDING SCAL... ACHS SQ 03/20/25 07:30 04/19/25 07:29 03/22/25 19:48 8 UNIT Ketorolac Tromethamine (toRADol) 30 mg Q6H IVP 03/20/25 14:30 03/21/25 16:19 DC 03/21/25 09:39 30 MG Ketorolac Tromethamine (toRADol) 30 mg Q6H PRN IVP BREAKTHROUGH PAIN 03/21/25 16:30 03/25/25 14:29 03/24/25 11:43 30 MG Lactated Ringer's 1,000 ml @ 125 mls/hr Q8H IV 03/19/25 21:30 03/23/25 12:12 DC 03/23/25 04:38 125 MLS/HR Lactulose (Constulose 20gm/ 30ml Udcup) 20 gm Q6H PRN PO CONSTIPATION 03/19/25 22:00 04/18/25 21:59 03/24/25 06:19 20 GM Lisinopril (Prinivil 10mg) 10 mg DAILY PO 03/20/25 09:00 04/19/25 08:59 03/24/25 08:12 10 MG Loratadine (LORATAdine 10 mg) 10 mg DAILY PO 03/25/25 09:00 04/24/25 08:59 Magnesium Oxide (Mag-Ox) 400 mg ONCE STAT PO 03/19/25 18:51 03/19/25 18:58 DC Magnesium Sulfate 50 ml @ 0 mls/hr PROTOCOL IV 03/22/25 09:30 03/24/25 11:18 DC 03/24/25 06:11 25 MLS/HR Magnesium Sulfate 50 ml @ 0 mls/hr PROTOCOL IV 03/24/25 11:30 04/23/25 11:29 Magnesium Sulfate 50 ml @ 0 mls/hr PROTOCOL PRN IV MAGNESIUM PROTOCOL 03/19/25 22:30 03/22/25 09:21 DC 03/22/25 09:04 25 MLS/HR Metronidazole/ Sodium Chloride (flaGYL) 500 mg Q8H IV 03/23/25 10:00 03/23/25 12:12 DC Metronidazole/ Sodium Chloride (flaGYL) 500 mg Q8H IV 03/23/25 12:00 04/02/25 11:59 03/24/25 11:42 500 MG Ondansetron HCl (zoFRAN 4MG INJ) 4 mg Q6H PRN IVP NAUSEA/VOMITING 03/19/25 22:00 04/18/25 21:59 Piperacillin Sod/ Tazobactam Sod (Zosyn 3.375gm+NS 50ml) 3.375 gm Q8H IVPB 03/20/25 03:00 03/23/25 09:55 DC 03/23/25 09:38 3.375 GM Potassium Chloride 100 ml @ 100 mls/hr AD PRN IV POTASSIUM PROTOCOL 03/19/25 22:30 04/18/25 22:29 Potassium Chloride (K-Dur/Klor-Con 20meq) 20 meq AD PRN PO POTASSIUM PROTOCOL 03/19/25 22:30 04/18/25 22:29 03/24/25 06:17 20 MEQ Potassium Chloride (KCl 10% Elixir 20meq/15ml) 20 meq AD PRN PO POTASSIUM PROTOCOL 03/19/25 22:30 04/18/25 22:29 Sodium Chloride (NS 50ml) 50 ml AD IV 03/20/25 03:00 03/20/25 14:21 DC Temazepam (restORIL 15 MG CAP) 15 mg HS PRN PO INSOMNIA/SLEEP 03/19/25 22:00 04/18/25 21:59 Diagnostics / Radiology: [COPY/PASTE HERE IF NO REPORTS PLEASE DELETE SECTION] Assessment: abdominal pain [Acute diverticulitis Plan: [Recommend patient be discharged with antibiotics bid when cleared by Medical. Patient is to f/u as outpatient for further evaluation for resolution of diverticulitis Colonoscopy recommended in 4-6 weeks Please call with questions, concerns, and change in clinical status. Thank you for this consult. ] BUNNY WILKINS NP Mar 24, 2025 13:21
[2025-03-24 16:00] VITALS: BP 153/75; PULSE 65; RESP 16; TEMP 97.9
--- NOTE | 2025-03-24 16:43 | PN ---
INFECTIOUS DISEASE PROGRESS NOTE Date of Service: Mar 24, 2025 SUBJECTIVE: This 59 year old female patient is being seen today at bedside. Patient is awake, alert and oriented. She remains on antibiotics. No fever or chills. No nausea or vomiting. Tolerating diet. Liver enzymes continue to be elevated, GI consult done by primary team. Blood cultures continue to be negative. We continue to follow patient closely. PHYSICAL EXAM EYES: Anicteric. Pupils equal and reactive. HENT: No oral thrush seen, moist Oral mucosa NECK: Supple, no JVD or thyromegaly. LUNGS: Good air entry. No rales, no rhonchi. CARDIOVASCULAR: S1, S2 regular. No murmur heard. ABDOMEN: Soft, non tender, bowel sounds present, no organomegaly CENTRAL NERVOUS SYSTEM: Awake, alert, oriented x 3. No focal deficits. SKIN: No rashes, no swelling. LYMPHATICS: No peripheral lymphadenopathy MUSCULOSKELETAL: No joint swelling, erythema or tenderness. EXTREMITIES: No cyanosis or clubbing BACK: No deformity, no pressure ulcer. GENITOURINARY: No dysuria or hematuria Vital Sign (Last 12 Hours) 03/24/25 03/24/25 03/24/25 03/24/25 08:00 08:00 11:45 16:00 Temp 97.9 98.1 97.9 Pulse 79 73 65 Resp 18 18 16 B/P (MAP) 143/86 135/79 153/75 Pulse Ox 98 98 97 99 O2 Delivery Room Air* Room Air Room Air Room Air O2 Flow Rate 0 FiO2 21 21 21 21 LABS: Laboratory: Test 03/24/25 15:20 03/24/25 05:13 03/22/25 19:22 Range/Units Whole Blood Glucose 97 70-110 MG/DL White Blood Count 7.1 4.8-10.8 K/uL Red Blood Count 4.07 4.00-5.50 MIL/uL Hemoglobin 12.0 12.0-16.0 g/dL Hematocrit 34.6 L 36-48 % Mean Corpuscular Volume 85.0 79-99 fL Mean Corpuscular Hemoglobin 29.5 27.0-33.0 pg Mean Corpuscular Hemoglobin Concent 34.7 32.0-36.0 g/dL Red Cell Distribution Width 12.7 11.0-15.5 % Platelet Count 301 # 130-400 K/uL Mean Platelet Volume 9.2 7.5-10.5 fL Nucleated Red Blood Cells 0.0 0.0-0.19 % Sodium Level 141 136-145 mmol/L Potassium Level 3.6 3.5-5.1 mmol/L Chloride Level 106 101-111 mmol/L Carbon Dioxide Level 24 21-32 mmol/L Blood Urea Nitrogen 8 7-18 mg/dL Creatinine 0.7 0.5-1.0 mg/dL Glomerular Filtration Rate Calc 100 >90 mL/min Random Glucose 136 H 70-105 mg/dL Total Calcium 8.6 8.5-10.1 mg/dL Magnesium Level 1.70 L 1.80-2.40 mg/dL Total Bilirubin 0.4 0.2-1.0 mg/dL Aspartate Amino Transf (AST/SGOT) 85 H 10-37 U/L Alanine Aminotransferase (ALT/SGPT) 174 H 12-78 U/L Alkaline Phosphatase 241 H 50-136 U/L Total Protein 6.6 6.0-8.3 g/dL Albumin 2.5 L 3.5-5.0 g/dL Bedside Glucose Comment Notified Nurse DIAGNOSTICS / RADIOLOGY: EXAM: CT Abdomen and Pelvis with IV contrast. CLINICAL HISTORY: Severe lower abdominal pain. TECHNIQUE: Thin collimated axial CT images of the abdomen and pelvis were obtained, with sagittal and coronal reformatted images also submitted. A CT scan is done according to ALARA (As Low As Reasonably Achievable). CONTRAST: 75 cc Omnipaque [id number]. COMPARISON: None. FINDINGS: Unremarkable visualised lung parenchyma. There is no focal abnormality appreciated within the liver, gallbladder, pancreas, spleen, adrenals, or kidneys. Fatty liver. Bowel loops are normal in calibre without evidence of obstruction or ileus. Sigmoid and descending colonic diverticulosis with adjacent fatty stranding. The appendix is unremarkable. There is no abnormality within the urinary bladder. Unremarkable reproductive organs. No lymphadenopathy. No free fluid. No pneumoperitoneum. No gross abnormality in the abdominal vessels. There is no acute osseous abnormality. IMPRESSIONS: Acute diverticulitis around the distal descending and proximal sigmoid colon without perforation or abscess. Fatty liver. /[place] EXAMINATION: ULTRASOUND OF THE ABDOMEN (LIMITED) WITH COLOR DOPPLER. CLINICAL HISTORY: Elevated liver enzymes. COMPARISON: CT abdomen and pelvis with contrast dated 03/19/2025. TECHNIQUE: Real-time grayscale ultrasound images of the abdomen. In addition, color Doppler is medically necessary to perform in order to evaluate vascularity and blood flow. FINDINGS: Liver: Normal in caliber, the right hepatic lobe measures 15.8 cm in the craniocaudal dimension. There is increased echogenicity of the hepatic parenchyma. There is no focal hepatic abnormality or intrahepatic biliary ductal dilatation. There is normal spectral Doppler of the main portal vein. Gallbladder: Within normal limits with normal wall thickness (0.32 cm). No hyperemia or pericholecystic free fluid. There is no cholelithiasis. Common bile duct is normal in caliber, measuring 0.40 cm. Pancreas: Head and body appear normal in caliber and echotexture. No calcification or dilated pancreatic duct. Tail is obscured by overlying bowel gas. The right kidney is normal in caliber, the right kidney measures 10.5 x 4.4 x 4.5 cm in craniocaudal, AP, and transverse dimensions respectively. There is normal renal cortical thickness, and cortical echogenicity. There is no renal calculus or hydronephrosis. IMPRESSION: Hepatic steatosis. /[place] ASSESSMENT: * Gram-negative bacteremia and sepsis. * Active diverticulitis. * Abdominal pain. * Diabetes mellitus. * elevated liver enzymes PLAN: * Continue antibiotics * Continue pain management. * Follow up culture. * Continue antiemetic. * Continue antidiabetic. * The patient will be followed up closely. * Follow GI recommendations * Patient to go home with Ceftin PO for 10 days, script given to nurse. This case has been discussed with my supervising physician Dr. Garcia. The case has been discussed and agreed upon. SELENA SILVERIO [facility] Mar 24, 2025 16:43
--- NOTE | 2025-03-24 16:59 | PN ---
[facility] PROGRESS NOTE Date of Service: Mar 24, 2025 Time of Service: 16:57 SUBJECTIVE: 03/20 the patient has been seen and examined at bedside, case discussed with the RN, patient remains hemodynamically stable, blood pressure 115/70, patient is still spiking fever, maximum temperature today 103.6. She complains of mild abdominal discomfort, still with persistent leukocytosis, WBC today 13.5. Chest x-ray no acute cardiopulmonary pathology. CT of the abdomen showing acute diverticulitis around the distal descending and proximal sigmoid colon without perforation or abscess. We will keep the patient NPO, supportive care with IV fluids, pain medication, broad-spectrum IV antibiotics. Infectious Disease consultation requested, we will follow input and recommendation. Surgical consultation requested, we will follow input and recommendation. 03/21 patient remains admitted to the medical floor, case discussed with the RN, no acute events overnight, she is hemodynamically stable, afebrile, saturating normal on room air, leukocytosis resolved, the time of my visit getting IV fluids, as well as IV antibiotics. The patient is currently NPO, with are clear liquid diet, advanced as tolerated, infectious disease input noted and appreciated, continue to follow surgical input and recommendation as well. Discussed with the patient, anticipate discharge home in the next 24-48 hours if medically stable. Patient in agreement. 03/22 patient remains admitted to the medical floor, case discussed with the RN, no acute events overnight, remains hemodynamically stable, afebrile, saturating normal on room air, diet has been advanced to full diet, tolerating well, no nausea, no vomiting, no abdominal discomfort, results of blood culture positive for Gram-negative rods, final identification pending, ID consultation requested, input noted and appreciated. Continue to follow repeat two sets of blood culture. Continue to follow surgical input and recommendation. The patient noted to have mildly elevated liver enzymes, we will request ultrasound of the liver for further evaluation, discussed with the patient, all questions answered, in agreement. 03/23 patient remains admitted to the medical floor, case discussed with the RN, no acute events overnight, hemodynamically stable, afebrile, saturating normal on room air, leukocytosis resolved, WBC 7.2, noted to have worsening elevated liver enzymes with an AST of 96, ALT 148, alkaline phosphatase 222. If continue to get was with a request GI consultation. Liver ultrasound showing hepatic steatosis. Home medications reviewed, with the patient's taking statin at home, we will hold this medication and continue to monitor liver enzymes in a.m.. If better anticipate discharge home. Repeat blood culture has remained negative. Discussed with the patient, in agreement. 03/24 patient remains admitted to the medical floor, no acute events overnight, hemodynamically stable, tolerating diet, leukocytosis resolved. Magnesium 1.7. We will give 2 g of magnesium sulfate IV. AST of 85 however ALT elevated today compared to yesterday. Total alkaline phosphatase getting worse, 241 today. Statins on hold, continue to follow liver enzymes in a.m.. GI consultation requested, we will follow input and recommendation. REVIEW OF SYSTEMS 12-point ROS reviewed with the patient. All pertinent positives mentioned above. Otherwise negative, noncontributory, non-pertinent PHYSICAL EXAM GENERAL APPEARANCE: The patient is awake, alert, and oriented, in no acute cardiopulmonary distress. NEUROLOGICAL: Cranial nerves II-XII grossly intact. Motor is 5/5 in bilateral upper and lower extremities proximal to distal. No sensory deficits. HEENT: Face is symmetric. Pupils are equal and reactive. Extraocular movements are intact. NECK: Supple. No JVD. No thyromegaly. No submental, submandibular, pre- /postauricular, occipital or supraclavicular lymphadenopathy. CHEST: Normal chest expansion. No Telemetry. LUNGS: Absence of any rales, rhonchi or any wheezing. CARDIOVASCULAR: Regular. S1 and S2 normal. No appreciable rubs, murmurs or gallops. ABDOMEN: Tenderness To deep palpation left lower quadrant. : Deferred. No Queen. EXTREMITIES: Non-edematous and not cyanotic. No clubbing. Good capillary refill. SKIN: No skin breakdown. Vital Signs (last 8hr) Date Time Temp Pulse Resp B/P (MAP) Pulse Ox O2 Delivery O2 Flow Rate FiO2 03/24/25 16:00 97.9 65 16 153/75 99 Room Air 21 03/24/25 11:45 98.1 73 18 135/79 97 Room Air 21 LABS: Laboratory: Test 03/24/25 15:20 03/24/25 05:13 03/22/25 19:22 Range/Units Whole Blood Glucose 97 70-110 MG/DL White Blood Count 7.1 4.8-10.8 K/uL Red Blood Count 4.07 4.00-5.50 MIL/uL Hemoglobin 12.0 12.0-16.0 g/dL Hematocrit 34.6 L 36-48 % Mean Corpuscular Volume 85.0 79-99 fL Mean Corpuscular Hemoglobin 29.5 27.0-33.0 pg Mean Corpuscular Hemoglobin Concent 34.7 32.0-36.0 g/dL Red Cell Distribution Width 12.7 11.0-15.5 % Platelet Count 301 # 130-400 K/uL Mean Platelet Volume 9.2 7.5-10.5 fL Nucleated Red Blood Cells 0.0 0.0-0.19 % Sodium Level 141 136-145 mmol/L Potassium Level 3.6 3.5-5.1 mmol/L Chloride Level 106 101-111 mmol/L Carbon Dioxide Level 24 21-32 mmol/L Blood Urea Nitrogen 8 7-18 mg/dL Creatinine 0.7 0.5-1.0 mg/dL Glomerular Filtration Rate Calc 100 >90 mL/min Random Glucose 136 H 70-105 mg/dL Total Calcium 8.6 8.5-10.1 mg/dL Magnesium Level 1.70 L 1.80-2.40 mg/dL Total Bilirubin 0.4 0.2-1.0 mg/dL Aspartate Amino Transf (AST/SGOT) 85 H 10-37 U/L Alanine Aminotransferase (ALT/SGPT) 174 H 12-78 U/L Alkaline Phosphatase 241 H 50-136 U/L Total Protein 6.6 6.0-8.3 g/dL Albumin 2.5 L 3.5-5.0 g/dL Bedside Glucose Comment Notified Nurse Current Medications Medications (Trade) Dose Ordered Sig/Sancho Route PRN Reason Start Time Stop Time Status Last Admin Dose Admin Acetaminophen (TYLenol 325MG TAB) 650 mg Q6H PRN PO FEVER/MILD PAIN LEVEL 1-3 03/19/25 22:00 04/18/25 21:59 03/24/25 03:14 650 MG Acetaminophen (TYLenol 650MG SUPPOSITORY) 650 mg Q6H PRN RC FEVER / MILD PAIN 1-3 IF NPO 03/19/25 22:00 04/18/25 21:59 Acetaminophen/ Hydrocodone Bitart (NORco 5/325MG) FOR MODERATE PAIN SC... Q6H PRN PO PAIN 4-10 03/19/25 22:00 03/20/25 14:20 DC Atorvastatin Calcium (LIPItor 10MG) 10 mg HS PO 03/20/25 21:00 04/19/25 20:59 03/23/25 20:06 10 MG Ceftriaxone Sodium (ROCEphine 1G INJ) 1 gm Q24H IVPB 03/23/25 10:00 03/23/25 12:12 DC Ceftriaxone Sodium (ROCEphine 1G INJ) 1 gm Q24H IVPB 03/23/25 12:00 04/02/25 11:59 03/24/25 11:42 1 GM Dextrose (D50w) 50 ml AD PRN IV HYPOGLYCEMIA PROTOCOL 03/19/25 22:30 04/18/25 22:29 Docusate Sodium (COLace 100MG CAP) 100 mg BID PRN PO CONSTIPATION 03/19/25 22:00 04/18/25 21:59 Famotidine (Pepcid 20mg Vial) 20 mg BID IV 03/20/25 09:00 03/22/25 08:48 DC 03/21/25 20:43 20 MG Famotidine (Pepcid 20mg Tab) 20 mg BID PO 03/22/25 09:00 04/21/25 08:59 03/24/25 08:12 20 MG Glucagon (Glucagon 1mg Kit) 1 mg AD PRN IM HYPOGLYCEMIA PROTOCOL 03/19/25 22:30 04/18/25 22:29 Hydromorphone HCl (DiLAUDid 1MG INJ) 1 mg Q3H PRN IVP SEVERE PAIN (7-10) 03/20/25 14:30 03/25/25 14:29 Insulin Human Regular (humuLIN R 100 UNIT/ML 3ML) INSULIN SLIDING SCAL... ACHS SQ 03/20/25 07:30 04/19/25 07:29 03/22/25 19:48 8 UNIT Ketorolac Tromethamine (toRADol) 30 mg Q6H IVP 03/20/25 14:30 03/21/25 16:19 DC 03/21/25 09:39 30 MG Ketorolac Tromethamine (toRADol) 30 mg Q6H PRN IVP BREAKTHROUGH PAIN 03/21/25 16:30 03/25/25 14:29 03/24/25 11:43 30 MG Lactated Ringer's 1,000 ml @ 125 mls/hr Q8H IV 03/19/25 21:30 03/23/25 12:12 DC 03/23/25 04:38 125 MLS/HR Lactulose (Constulose 20gm/ 30ml Udcup) 20 gm Q6H PRN PO CONSTIPATION 03/19/25 22:00 04/18/25 21:59 03/24/25 06:19 20 GM Lisinopril (Prinivil 10mg) 10 mg DAILY PO 03/20/25 09:00 04/19/25 08:59 03/24/25 08:12 10 MG Loratadine (LORATAdine 10 mg) 10 mg DAILY PO 03/25/25 09:00 04/24/25 08:59 Magnesium Oxide (Mag-Ox) 400 mg ONCE STAT PO 03/19/25 18:51 03/19/25 18:58 DC Magnesium Sulfate 50 ml @ 0 mls/hr PROTOCOL IV 03/22/25 09:30 03/24/25 11:18 DC 03/24/25 06:11 25 MLS/HR Magnesium Sulfate 50 ml @ 0 mls/hr PROTOCOL IV 03/24/25 11:30 04/23/25 11:29 Magnesium Sulfate 50 ml @ 0 mls/hr PROTOCOL PRN IV MAGNESIUM PROTOCOL 03/19/25 22:30 03/22/25 09:21 DC 03/22/25 09:04 25 MLS/HR Metronidazole/ Sodium Chloride (flaGYL) 500 mg Q8H IV 03/23/25 10:00 03/23/25 12:12 DC Metronidazole/ Sodium Chloride (flaGYL) 500 mg Q8H IV 03/23/25 12:00 04/02/25 11:59 03/24/25 11:42 500 MG Ondansetron HCl (zoFRAN 4MG INJ) 4 mg Q6H PRN IVP NAUSEA/VOMITING 03/19/25 22:00 04/18/25 21:59 Piperacillin Sod/ Tazobactam Sod (Zosyn 3.375gm+NS 50ml) 3.375 gm Q8H IVPB 03/20/25 03:00 03/23/25 09:55 DC 03/23/25 09:38 3.375 GM Potassium Chloride 100 ml @ 100 mls/hr AD PRN IV POTASSIUM PROTOCOL 03/19/25 22:30 04/18/25 22:29 Potassium Chloride (K-Dur/Klor-Con 20meq) 20 meq AD PRN PO POTASSIUM PROTOCOL 03/19/25 22:30 04/18/25 22:29 03/24/25 06:17 20 MEQ Potassium Chloride (KCl 10% Elixir 20meq/15ml) 20 meq AD PRN PO POTASSIUM PROTOCOL 03/19/25 22:30 04/18/25 22:29 Sodium Chloride (NS 50ml) 50 ml AD IV 03/20/25 03:00 03/20/25 14:21 DC Temazepam (restORIL 15 MG CAP) 15 mg HS PRN PO INSOMNIA/SLEEP 03/19/25 22:00 04/18/25 21:59 DIAGNOSTICS / RADIOLOGY: [ ] ASSESSMENT: Acute diverticulitis around the distal descending and proximal sigmoid colon, POA, per CT on 03/19/2025 Sepsis, POA, 2/2 above Intractable abdominal pain with acute N/V/D, POA Acute febrile illness, POA Fatty liver, POA Leukocytosis/lactic acidosis, POA GBW, POA Diabetes mellitus with hyperglycemia, POA Electrolyte derangement (hypomagnesemia, hypocalcemia), POA Hypertension Hypercholesteremia PLAN: patient remains admitted to the medical floor, no acute events overnight, hemodynamically stable, tolerating diet, leukocytosis resolved. Magnesium 1.7. We will give 2 g of magnesium sulfate IV. AST of 85 however ALT elevated today compared to yesterday. Total alkaline phosphatase getting worse, 241 today. Statins on hold, continue to follow liver enzymes in a.m.. GI consultation r equested, we will follow input and recommendation. NEURO: Minimize central acting medications as possible. Fall Precautions. Well lighted room through the day and minimize interruptions through the night to prevent acute delirium. PULMONARY: Supplemental 02 as needed BiPAP as necessary, for respiratory distress Titrate Fio2 to keep Spo2 > or = 90% DuoNebs and CPT as needed IS hourly while awake for pulmonary hygiene prn Out of bed to chair as tolerated Maintain aspiration precautions at all times CARDIOVASCULAR: Follow hemodynamics. Vital signs per facility protocol GI & NUTRITION: Continue nutritional support Aspirations precautions Prokinetic agents and laxatives as needed KIDNEYS & ELECTROLYTES: Strict monitoring of intake and output Daily weights Avoid nephrotoxic agents Monitor electrolytes and replace as needed Goal urine output of 30mL/hr or 0.5mL/kg/hr Medications to be dosed according to renal function. Avoid contrast if possible ENDOCRINE: Maintain blood glucose between 100-180 at all times. Insulin sliding scale for blood glucose management Hypoglycemia and hyperglycemia protocol in place INFECTIOUS DISEASE: Trend temperature, WBC and procalcitonin level Follow cultures, deescalate antibiotics as soon as possible. Panculture if new onset fever HEMATOLOGY & COAGULATION: Monitor H&H. Keep Hgb > 7 Transfuse 1 unit of PRBC for Hgb < 7 Transfuse 1 pack of platelets of platelets < 20, 000 Watch for any signs and symptoms of bleeding SKIN: Pressure ulcer prevention per facility protocol Specialty mattress as needed ORTHO/REHAB Continue PT/OT PRN: MEDICATIONS Tylenol 650 mg po every 4 hrs for fever zofran 4 mg IV every 6 hrs for n/v Hydralazine 5 mg IV every 4 hrs systolic pressure > 160 bowel regiment: lactulose 20 gm PO BID PRN constipation Supportive measures: Continue GI and DVT prophylaxis Disposition: Pending improvement in clinical condition All questions answered time spent: > 35 min SHANE MAURER MD Mar 24, 2025 16:59
[2025-03-24 20:00] VITALS: BP 159/87; PULSE 68; RESP 20; TEMP 98; O2SAT 99
[2025-03-25] VITALS: BP 129/73; PULSE 69; RESP 20; TEMP 98
[2025-03-25 04:00] VITALS: BP 109/59; PULSE 72; RESP 20; TEMP 98.6
[2025-03-25 08:00] VITALS: BP 142/80; PULSE 76; RESP 18; TEMP 98; O2SAT 96
[2025-03-25] MEDS: LORATAdine 10 mg 10 MG TABLET PO SCH (08:52)
--- NOTE | 2025-03-25 11:14 | PN ---
GENERAL SURGERY PROGRESS NOTE DATE OF SERVICE: Mar 25, 2025 TIME OF SERVICE: 11:11 Doing better PROBLEM LISTS: [ ] Acute diverticulitis INTERVAL HISTORY: [ ] Improving PHYSICAL EXAMINATION: GENERAL: [Patient is lying comfortably in bed, not in any obvious distress.] HEAD: [Normal with no signs of head trauma.] EYES: [Not pale not jaundiced afebrile to touch.] ENT: [ Normal.] NECK: [Supple,no tenderness,no lymphadenopathy,no masses,no thyromegaly ,no bruits, no JVD.] LUNGS: [Clear breath sounds bilaterally. No wheezes, rales, or rhonchi.] HEART: [Regular rate and rhythm. Normal S1 and S2, without murmurs, rub or gallop.] VASC: [No edema. Peripheral pulses normal and equal in all extremities.] ABD: [Soft nontender.] : [Normal, no suprapubic tenderness.] LYMPH: [No lymphadenopathy noted.] EXT: [ Warm soft, non tender.] SKIN: [ No rashes or lesions.] NEURO: [ Awake Alert and oriented x3.] LABORATORY: [ ] Hematology Labs: Test 03/24/25 05:13 Range/Units White Blood Count 7.1 4.8-10.8 K/uL Red Blood Count 4.07 4.00-5.50 MIL/uL Hemoglobin 12.0 12.0-16.0 g/dL Hematocrit 34.6 L 36-48 % Mean Corpuscular Volume 85.0 79-99 fL Mean Corpuscular Hemoglobin 29.5 27.0-33.0 pg Mean Corpuscular Hemoglobin Concent 34.7 32.0-36.0 g/dL Red Cell Distribution Width 12.7 11.0-15.5 % Platelet Count 301 # 130-400 K/uL Mean Platelet Volume 9.2 7.5-10.5 fL Nucleated Red Blood Cells 0.0 0.0-0.19 % Chemistry Labs: Test 03/25/25 05:19 03/24/25 05:13 Range/Units Whole Blood Glucose 108 70-110 MG/DL Sodium Level 141 136-145 mmol/L Potassium Level 3.6 3.5-5.1 mmol/L Chloride Level 106 101-111 mmol/L Carbon Dioxide Level 24 21-32 mmol/L Blood Urea Nitrogen 8 7-18 mg/dL Creatinine 0.7 0.5-1.0 mg/dL Glomerular Filtration Rate Calc 100 >90 mL/min Random Glucose 136 H 70-105 mg/dL Total Calcium 8.6 8.5-10.1 mg/dL Magnesium Level 1.70 L 1.80-2.40 mg/dL Total Bilirubin 0.4 0.2-1.0 mg/dL Aspartate Amino Transf (AST/SGOT) 85 H 10-37 U/L Alanine Aminotransferase (ALT/SGPT) 174 H 12-78 U/L Alkaline Phosphatase 241 H 50-136 U/L Total Protein 6.6 6.0-8.3 g/dL Albumin 2.5 L 3.5-5.0 g/dL DIAGNOSTICS / RADIOLOGY: [Copy/Paste Echos/Imaging Report here] ASSESSMENT: [] Acute diverticulitis Improving PLAN: Tolerating diet May DC from my standpoint NIKI ROWE MD Mar 25, 2025 11:14
[2025-03-25 11:51] LABS: ASPARTATE AMINOTRANSFERASE 59.0 U/L (10-37); TOTAL PROTEIN, SERUM 7.4 g/dL (6.0-8.3)
[2025-03-25 12:00] VITALS: BP 117/78; PULSE 81; RESP 19; TEMP 97.8
--- NOTE | 2025-03-25 12:55 | NUR ---
IV ABX NOT GIVEN IV ABX NOT GIVEN D/T PT BEING DISCHARGED ON PO ABX
--- NOTE | 2025-03-25 13:55 | PN ---
INFECTIOUS DISEASE PROGRESS NOTE Date of Service: Mar 25, 2025 SUBJECTIVE: This 59 year old female patient is being seen today at bedside. Patient denies chest pain or shortness of breath. Patient denies abdominal discomfort. Is tolerating diet well. She remains on antibiotics and we have given script of oral antibiotics once patient is stable for d/c. No acute events over night. We continue to follow patient. PHYSICAL EXAM EYES: Anicteric. Pupils equal and reactive. HENT: No oral thrush seen, moist Oral mucosa NECK: Supple, no JVD or thyromegaly. LUNGS: Good air entry. No rales, no rhonchi. CARDIOVASCULAR: S1, S2 regular. No murmur heard. ABDOMEN: Soft, non tender, bowel sounds present, no organomegaly CENTRAL NERVOUS SYSTEM: Awake, alert, oriented x 3. No focal deficits. SKIN: No rashes, no swelling. LYMPHATICS: No peripheral lymphadenopathy MUSCULOSKELETAL: No joint swelling, erythema or tenderness. EXTREMITIES: No cyanosis or clubbing BACK: No deformity, no pressure ulcer. GENITOURINARY: No dysuria or hematuria Vital Sign (Last 12 Hours) 03/25/25 03/25/25 03/25/25 03/25/25 04:00 08:00 08:00 12:00 Temp 98.6 98.1 97.9 Pulse 72 76 81 Resp 20 18 19 B/P (MAP) 109/59 142/80 117/78 Pulse Ox 98 96 97 97 O2 Delivery Room Air Room Air* Room Air Room Air O2 Flow Rate 0 FiO2 21 Intake & Output (last 24hrs) 03/24/25 03/24/25 03/25/25 15:00 23:00 07:00 Intake Total 700 ml Balance 700 ml LABS: Laboratory: Test 03/25/25 11:46 03/25/25 11:15 03/24/25 05:13 Range/Units Whole Blood Glucose 165 #H 70-110 MG/DL Total Bilirubin 0.4 0.2-1.0 mg/dL Direct Bilirubin 0.1 0.0-0.3 mg/dL Aspartate Amino Transf (AST/SGOT) 59 H 10-37 U/L Alanine Aminotransferase (ALT/SGPT) 158 H 12-78 U/L Alkaline Phosphatase 249 H 50-136 U/L Total Protein 7.4 6.0-8.3 g/dL Albumin 3.1 L 3.5-5.0 g/dL White Blood Count 7.1 4.8-10.8 K/uL Red Blood Count 4.07 4.00-5.50 MIL/uL Hemoglobin 12.0 12.0-16.0 g/dL Hematocrit 34.6 L 36-48 % Mean Corpuscular Volume 85.0 79-99 fL Mean Corpuscular Hemoglobin 29.5 27.0-33.0 pg Mean Corpuscular Hemoglobin Concent 34.7 32.0-36.0 g/dL Red Cell Distribution Width 12.7 11.0-15.5 % Platelet Count 301 # 130-400 K/uL Mean Platelet Volume 9.2 7.5-10.5 fL Nucleated Red Blood Cells 0.0 0.0-0.19 % Sodium Level 141 136-145 mmol/L Potassium Level 3.6 3.5-5.1 mmol/L Chloride Level 106 101-111 mmol/L Carbon Dioxide Level 24 21-32 mmol/L Blood Urea Nitrogen 8 7-18 mg/dL Creatinine 0.7 0.5-1.0 mg/dL Glomerular Filtration Rate Calc 100 >90 mL/min Random Glucose 136 H 70-105 mg/dL Total Calcium 8.6 8.5-10.1 mg/dL Magnesium Level 1.70 L 1.80-2.40 mg/dL DIAGNOSTICS / RADIOLOGY: EXAM: CT Abdomen and Pelvis with IV contrast. CLINICAL HISTORY: Severe lower abdominal pain. TECHNIQUE: Thin collimated axial CT images of the abdomen and pelvis were obtained, with sagittal and coronal reformatted images also submitted. A CT scan is done according to ALARA (As Low As Reasonably Achievable). CONTRAST: 75 cc Omnipaque [id number]. COMPARISON: None. FINDINGS: Unremarkable visualised lung parenchyma. There is no focal abnormality appreciated within the liver, gallbladder, pancreas, spleen, adrenals, or kidneys. Fatty liver. Bowel loops are normal in calibre without evidence of obstruction or ileus. Sigmoid and descending colonic diverticulosis with adjacent fatty stranding. The appendix is unremarkable. There is no abnormality within the urinary bladder. Unremarkable reproductive organs. No lymphadenopathy. No free fluid. No pneumoperitoneum. No gross abnormality in the abdominal vessels. There is no acute osseous abnormality. IMPRESSIONS: Acute diverticulitis around the distal descending and proximal sigmoid colon without perforation or abscess. Fatty liver. /[place] EXAMINATION: ULTRASOUND OF THE ABDOMEN (LIMITED) WITH COLOR DOPPLER. CLINICAL HISTORY: Elevated liver enzymes. COMPARISON: CT abdomen and pelvis with contrast dated 03/19/2025. TECHNIQUE: Real-time grayscale ultrasound images of the abdomen. In addition, color Doppler is medically necessary to perform in order to evaluate vascularity and blood flow. FINDINGS: Liver: Normal in caliber, the right hepatic lobe measures 15.8 cm in the craniocaudal dimension. There is increased echogenicity of the hepatic parenchyma. There is no focal hepatic abnormality or intrahepatic biliary ductal dilatation. There is normal spectral Doppler of the main portal vein. Gallbladder: Within normal limits with normal wall thickness (0.32 cm). No hyperemia or pericholecystic free fluid. There is no cholelithiasis. Common bile duct is normal in caliber, measuring 0.40 cm. Pancreas: Head and body appear normal in caliber and echotexture. No calcification or dilated pancreatic duct. Tail is obscured by overlying bowel gas. The right kidney is normal in caliber, the right kidney measures 10.5 x 4.4 x 4.5 cm in craniocaudal, AP, and transverse dimensions respectively. There is normal renal cortical thickness, and cortical echogenicity. There is no renal calculus or hydronephrosis. IMPRESSION: Hepatic steatosis. /[place] ASSESSMENT: * Gram-negative bacteremia and sepsis. * Active diverticulitis. * Abdominal pain. * Diabetes mellitus. * elevated liver enzymes PLAN: * Continue antibiotics * Continue pain management. * Continue antiemetic. * Continue antidiabetic. * The patient will be followed up closely. * Follow GI recommendations * Patient to go home with Ceftin PO for 10 days, script given to nurse. This case has been discussed with my supervising physician Dr. Garcia. The case has been discussed and agreed upon. SELENA SILVERIO [facility] Mar 25, 2025 13:55
--- NOTE | 2025-03-25 14:53 | NUR ---
discharge pt a & ox 4, vital signs stable on roomair, educated on discharge instructions, all questions answered. pt aware to f/u with gastroenterology outpatient w/dr huerta. pt also aware to f/u with pcp and to take oral abx as prescribed. pt verbalized understanding. iv removed, catheter intact. all belongings with pt at bedside. pt waiting on ride home. will followup.
--- NOTE | 2025-03-26 07:27 | DS ---
Discharge Summary Hospital Course Summary: Date of service 03/25/2025 The patient initially admitted to the hospital on March 19, 2025 with the following history of the present illness: Mrs. Boudreaux is a 59-year-old female with a past medical history of hypercholesteremia, type 2 diabetes and hypertension who presented to [facility] via EMS for evaluation of fever, diarrhea, chills, nausea, vomiting, generalized body weakness that started earlier today. The patient reported that the abdominal pain was in her lower abdomen is constant and feels like colicky/bad cramping. Initially the patient refused CT of abdomen and pelvis that ED provider requested. The patient presented to the ED with with a BP of 124/81, heart rate 124 bpm, respirations 20 bpm, 100.29 F, 98% on room air. Labs: WBCs of 14.3, lactic acids 2.5, magnesium 1.4. Negative: Influenza, COVID, rapid strep swabs, UA, and chest x-ray. CT abdomen pelvis with contrast: Acute diverticulitis around the distal descending and proximal sigmoid colon without perforation or abscess, fatty liver. Abdominal ultrasound done, hepatic steatosis ED provider administered NS a 1878 mL, Tylenol 1 g, Zosyn 3.375, magnesium oxide 400 mg. ED provider request patient be admitted to the hospital with a diagnosis of sepsis, gastroenteritis, leukocytosis. 03/20 the patient has been seen and examined at bedside, case discussed with the RN, patient remains hemodynamically stable, blood pressure 115/70, patient is still spiking fever, maximum temperature today 103.6. She complains of mild abdominal discomfort, still with persistent leukocytosis, WBC today 13.5. Chest x-ray no acute cardiopulmonary pathology. CT of the abdomen showing acute diverticulitis around the distal descending and proximal sigmoid colon without perforation or abscess. We will keep the patient NPO, supportive care with IV fluids, pain medication, broad-spectrum IV antibiotics. Infectious Disease consultation requested, we will follow input and recommendation. Surgical consultation requested, we will follow input and recommendation. 03/21 patient remains admitted to the medical floor, case discussed with the RN, no acute events overnight, she is hemodynamically stable, afebrile, saturating normal on room air, leukocytosis resolved, the time of my visit getting IV fluids, as well as IV antibiotics. The patient is currently NPO, with are clear liquid diet, advanced as tolerated, infectious disease input noted and appreciated, continue to follow surgical input and recommendation as well. Discussed with the patient, anticipate discharge home in the next 24-48 hours if medically stable. Patient in agreement. 03/22 patient remains admitted to the medical floor, case discussed with the RN, no acute events overnight, remains hemodynamically stable, afebrile, saturating normal on room air, diet has been advanced to full diet, tolerating well, no nausea, no vomiting, no abdominal discomfort, results of blood culture positive for Gram-negative rods, final identification pending, ID consultation requested, input noted and appreciated. Continue to follow repeat two sets of blood culture. Continue to follow surgical input and recommendation. The patient noted to have mildly elevated liver enzymes, we will request ultrasound of the l iver for further evaluation, discussed with the patient, all questions answered, in agreement. 03/23 patient remains admitted to the medical floor, case discussed with the RN, no acute events overnight, hemodynamically stable, afebrile, saturating normal o n room air, leukocytosis resolved, WBC 7.2, noted to have worsening elevated liver enzymes with an AST of 96, ALT 148, alkaline phosphatase 222. If continue to get was with a request GI consultation. Liver ultrasound showing hepatic steatosis. Home medications reviewed, with the patient's taking statin at home, we will hold this medication and continue to monitor liver enzymes in a.m.. If better anticipate discharge home. Repeat blood culture has remained negative. Discussed with the patient, in agreement. 03/24 patient remains admitted to the medical floor, no acute events overnight, hemodynamically stable, tolerating diet, leukocytosis resolved. Magnesium 1.7. We will give 2 g of magnesium sulfate IV. AST of 85 however ALT elevated today compared to yesterday. Total alkaline phosphatase getting worse, 241 today. Statins on hold, continue to follow liver enzymes in a.m.. GI consultation requested, we will follow input and recommendation. [employer](s): General surgery, Infectious Disease and Gastroenterology Services. Assessment/Plan: Final diagnosis Acute diverticulitis around the distal descending and proximal sigmoid colon, POA, per CT on 03/19/2025 Sepsis, POA, 2/2 above Intractable abdominal pain with acute N/V/D, POA Acute febrile illness, POA Fatty liver, POA Leukocytosis/lactic acidosis, POA GBW, POA Diabetes mellitus with hyperglycemia, POA Electrolyte derangement (hypomagnesemia, hypocalcemia), POA Hypertension Hypercholesteremia Transaminitis, improving Discharge Instructions: The patient to follow with her PCP as an outpatient to recheck liver enzymes in one week, to ensure the anterior trending down, patient advised to return to the hospital for condition changes. Oral antibiotics provided by Infectious Disease. Patient agreed with the plan and understood the information provided. Home Medications: Reported Medications Metformin HCl (Metformin HCl ER) 500 Mg Tab.er.24h, 1 TAB PO BID for 30 Days, #60 TAB 0 Refills 03/19/25 Lisinopril (Lisinopril) 10 Mg Tablet, 1 TAB PO DAILY for 30 Days, #30 TAB 0 Refills 03/19/25 Atorvastatin Calcium (LIPITOR) 20 Mg Tab, 1 TAB PO HS for 30 Days, #30 TAB 0 Refills 03/19/25 Time spent arranging discharge: 31-60 minutes SHANE MAURER MD Mar 26, 2025 07:27
== END 2025-03-25 15:38 | disposition home or self-care (01) | DRG 872 ==
LOC: EDH 16:49 → EDHIP 16:50 → 3BH 03-20 00:48
PROVIDERS: ADMIT Hospitalist; ATTEND Hospitalist
DX: A41.50 Gram-negative sepsis, unspecified (principal); K57.32 Diverticulitis of large intestine without perforation or abscess without bleeding; E87.20 Acidosis, unspecified; E83.42 Hypomagnesemia; E83.51 Hypocalcemia; B96.89 Other specified bacterial agents as the cause of diseases classified elsewhere; E11.65 Type 2 diabetes mellitus with hyperglycemia; E78.00 Pure hypercholesterolemia, unspecified; I10 Essential (primary) hypertension; K52.9 Noninfective gastroenteritis and colitis, unspecified; K59.00 Constipation, unspecified; K76.0 Fatty (change of) liver, not elsewhere classified; Z80.1 Family history of malignant neoplasm of trachea, bronchus and lung
CPT/HCPCS: 36415; 71045; 74177; 76705; 80048; 80053; 80076; 81003; 82550; 82948; 83605; 83735; 83880; 84100; 84132; 84443; 84484; 85025; 85027; 87040; 87086; 87186; 87635; 87804; 87880; 93005; 96374; 99285; G0378; J0696; J1815; J1885; J2543; J3475; J3490; J7030; J7120; Q9967